=== PATIENT | male | born 1955 | race Caucasian/White ===

== ENCOUNTER → 2018-01-28 11:04 | Outpatient (CLI) | payer MEDICARE, SELFPAY ==
[2018-01-28 11:10] LABS: Microscopic, Urine URINE MICROSCOPIC (MICROSCOPIC)
[2018-01-28 11:44] LABS: Basophils # 0.1 K/mm3 (0-0.2); Basophils % 0.7 % (0.1-2.0); Eosinophils # 0.4 K/mm3 (0.0-0.4); Eosinophils % 4.7 % (0.1-12.0); Hematocrit 46.3 % (42.0-52.0); Hemoglobin 14.7 g/dL (14.1-18.0); Lymphocytes # 1.8 K/mm3 (0.7-4.5); Lymphocytes % 23.2 K/mm3 (10-50); Mean Corpuscular HGB Conc 31.8 g/dL (31.8-35.4); Mean Corpuscular Hemoglobin 29.5 pg (27.0-31.2); Mean Corpuscular Volume 92.8 fl (80-94); Mean Platelet Volume 8.4 fl (7.4-10.4); Monocytes # 0.4 K/mm3 (0.1-1.0); Monocytes % 5.2 % (1.7-9.3); Neutrophils % 66.2 % (37.0-80.0); Platelet Count 253 K/mm3 (142-424); Red Blood Count 4.98 M/mm3 (4.60-6.20); Red Cell Distribution Width 13.7 % (11.5-17.5); White Blood Count 7.6 K/mm3 (4.8-10.8)
[2018-01-28 12:08] LABS: Appearance,Urine CLEAR (Clear); Bilirubin,Urine Negative (Negative); Blood, Urine Negative (Negative); Color,Urine YELLOW (Yellow); Glucose,Urine (UA) 3+ (Negative); Ketones,Urine Negative (Negative); Leukocyte Esterase,Urine Negative (Negative); Nitrate,Urine Negative (Negative); Protein,Urine Negative (Negative); Specific Gravity, Urine 1.025 (1.005-1.030); Urobilinogen,Urine 0.2 EU/dl (0.2)
[2018-01-28 12:21] LABS: Bacteria,Urine 1+ /lpf; Squamous Epithelial Cell,Urine Occasional #/hpf (0-5)
[2018-01-28 12:32] LABS: Creatinine,Urine Random 138 mg/dL (20-320); Total Protein,Urine Random 29.6 mg/dL (0.0-11.9)
[2018-01-28 12:52] LABS: Albumin Level 3.9 gm/dL (3.4-5.0); Anion Gap 12.7 mEq/L (5-15); Blood Urea Nitrogen 29 mg/dL (7-18); Calcium 9.4 mg/dL (8.5-10.1); Carbon Dioxide 28 mmol/L (21.0-32.0); Chloride 107 mmol/L (98-107); Creatinine,Serum 1.83 mg/dL (0.70-1.30); Estimated Glomerular Filt Rate 37 ml/min (>60); GFR (African American) 45 ML/MIN (>60); Glucose 237 mg/dL (74-106); Phosphorous 3.5 mg/dL (2.4-4.9); Potassium 4.7 mmoL/L (3.5-5.1); Sodium 143 mmol/L (136-145)
[2018-02-01 13:26] LABS: Parathyroid Hormone Intact 48 pg/mL (15-65)
== END ==
PROVIDERS: Visit Provider Internal Medicine Nephrology
DX: N18.3 Chronic kidney disease, stage 3 (moderate) (principal)
CPT/HCPCS: 36415; 80069; 81001; 82570; 82652; 83970; 84155; 85025

== ENCOUNTER → 2018-02-04 11:01 | Outpatient (POV) | payer MEDICARE, SELFPAY | PROVIDERS: Visit Provider Internal Medicine Nephrology | DX: Z00.00 Encounter for general adult medical examination without abnormal findings (principal) ==

== ENCOUNTER → 2018-04-30 11:46 | Outpatient (CLI) | payer MEDICARE, SELFPAY ==
[2018-04-30 12:11] LABS: Basophils # 0.1 K/mm3 (0-0.2); Basophils % 0.8 % (0.1-2.0); Eosinophils # 0.4 K/mm3 (0.0-0.4); Eosinophils % 4.2 % (0.1-12.0); Hematocrit 46.1 % (42.0-52.0); Hemoglobin 15.1 g/dL (14.1-18.0); Lymphocytes # 2.2 K/mm3 (0.7-4.5); Lymphocytes % 22.4 K/mm3 (10-50); Mean Corpuscular HGB Conc 32.7 g/dL (31.8-35.4); Mean Corpuscular Hemoglobin 30.3 pg (27.0-31.2); Mean Corpuscular Volume 92.8 fl (80-94); Mean Platelet Volume 8.2 fl (7.4-10.4); Monocytes # 0.5 K/mm3 (0.1-1.0); Monocytes % 4.7 % (1.7-9.3); Neutrophils # 6.6 K/mm3 (1.8-7.8); Neutrophils % 67.9 % (37.0-80.0); Platelet Count 221 K/mm3 (142-424); Red Blood Count 4.97 M/mm3 (4.60-6.20); Red Cell Distribution Width 14.2 % (11.5-17.5); White Blood Count 9.8 K/mm3 (4.8-10.8)
[2018-04-30 13:22] LABS: Albumin Level 3.9 gm/dL (3.4-5.0); Anion Gap 16.3 mEq/L (5-15); Blood Urea Nitrogen 21 mg/dL (7-18); Calcium 9.2 mg/dL (8.5-10.1); Carbon Dioxide 25 mmol/L (21.0-32.0); Chloride 109 mmol/L (98-107); Creatinine,Serum 1.68 mg/dL (0.70-1.30); Estimated Glomerular Filt Rate 41 ml/min (>60); GFR (African American) 50 ML/MIN (>60); Glucose 150 mg/dL (74-106); Potassium 4.3 mmoL/L (3.5-5.1); Sodium 146 mmol/L (136-145); Uric Acid 5.4 mg/dL (2.6-7.2)
[2018-04-30 14:22] LABS: Creatinine,Urine Random 208 mg/dL (20-320)
[2018-05-01 12:42] LABS: Vitamin D 25 Hydroxy 31.3 ng/mL (30.0-100.0)
[2018-05-01 12:46] LABS: Microalbumin, Urine 17.7 ug/mL (Not Estab.)
== END ==
PROVIDERS: PCP Family Medicine; Visit Provider Internal Medicine Nephrology
DX: N18.3 Chronic kidney disease, stage 3 (moderate) (principal)
CPT/HCPCS: 36415; 80069; 82043; 82570; 82652; 83520; 84550; 85025

== ENCOUNTER → 2018-05-14 12:26 | Outpatient (CLI) | payer MEDICARE, SELFPAY ==
--- NOTE | 2018-05-14 12:37 | US_ITS ---
US kidney retroperitoneal comp HISTORY: ITS.REASON: CHRONIC KIDNEY DISEASE ORDERING PHYSICIAN: Bud Mcfarlane PATIENT AGE: 63 years Comparison: None FINDINGS: The right kidney is 10 x 5 x 6 cm and has an unremarkable appearance. No hydronephrosis or mass or perinephric fluid collection. Left kidney is 10 x 5 x 6 cm. There is moderate to severe left hydronephrosis with cortical thinning of the left kidney. Incidental note made of a isoechoic 2.6 x 1.5 cm lesion in the right lobe of the liver. IMPRESSION: 1. Moderate to severe left hydronephrosis with cortical thinning of the left kidney. 2. Indeterminate 2.6 cm lesion of the right hepatic lobe
== END ==
PROVIDERS: PCP Family Medicine; Visit Provider Internal Medicine Nephrology
DX: N18.3 Chronic kidney disease, stage 3 (moderate) (principal)
CPT/HCPCS: 76770

== ENCOUNTER → 2018-05-31 11:06 | Outpatient (CLI) | payer MEDICARE, SELFPAY ==
[2018-05-31 11:22] LABS: INR 0.97 (0.9-1.1)
[2018-05-31 11:37] LABS: Anion Gap 14.1 mEq/L (5-15); Blood Urea Nitrogen 19 mg/dL (7-18); CKMB Relative Index 1.3 U/L (0-4.0); Calcium 8.9 mg/dL (8.5-10.1); Carbon Dioxide 26 mmol/L (21.0-32.0); Chloride 103 mmol/L (98-107); Creatine Kinase 95 U/L (39-308); Creatine Kinase MB 1.2 ng/ml (0.0-3.6); Creatinine,Serum 1.98 mg/dL (0.70-1.30); Estimated Glomerular Filt Rate 34 ml/min (>60); GFR (African American) 41 ML/MIN (>60); Glucose 328 mg/dL (74-106); Potassium 4.1 mmoL/L (3.5-5.1); Sodium 139 mmol/L (136-145); Troponin I < 0.02 ng/ml (0.00-0.06)
[2018-05-31 11:41] LABS: Basophils # 0.1 K/mm3 (0-0.2); Basophils % 0.6 % (0.1-2.0); Eosinophils # 0.3 K/mm3 (0.0-0.4); Eosinophils % 2.8 % (0.1-12.0); Hematocrit 45.9 % (42.0-52.0); Hemoglobin 14.7 g/dL (14.1-18.0); Lymphocytes # 1.9 K/mm3 (0.7-4.5); Lymphocytes % 16.8 K/mm3 (10-50); Mean Corpuscular HGB Conc 32.1 g/dL (31.8-35.4); Mean Corpuscular Hemoglobin 30.2 pg (27.0-31.2); Mean Platelet Volume 8.4 fl (7.4-10.4); Monocytes # 0.5 K/mm3 (0.1-1.0); Monocytes % 4.4 % (1.7-9.3); Neutrophils # 8.4 K/mm3 (1.8-7.8); Neutrophils % 75.3 % (37.0-80.0); Platelet Count 243 K/mm3 (142-424); Red Blood Count 4.88 M/mm3 (4.60-6.20); Red Cell Distribution Width 13.9 % (11.5-17.5); White Blood Count 11.1 K/mm3 (4.8-10.8)
== END ==
PROVIDERS: PCP Physician Assistant; Visit Provider Physician Assistant
DX: I24.9 Acute ischemic heart disease, unspecified (principal); I34.0 Nonrheumatic mitral (valve) insufficiency
CPT/HCPCS: 80048; 82550; 82553; 84484; 85025; 85610

== ENCOUNTER → 2018-06-03 13:19 | Outpatient (POV) | payer MEDICARE, SELFPAY | PROVIDERS: PCP Physician Assistant; Visit Provider Internal Medicine Nephrology | DX: Z00.00 Encounter for general adult medical examination without abnormal findings (principal) ==

== ENCOUNTER 2018-06-09 12:02 | Observation (INO) ==
[2018-06-09 12:41] LABS: Basophils # 0.1 K/mm3 (0-0.2); Basophils % 0.6 % (0.1-2.0); Eosinophils # 0.3 K/mm3 (0.0-0.4); Hematocrit 41.2 % (42.0-52.0); Hemoglobin 14.8 g/dL (14.1-18.0); Lymphocytes # 1.2 K/mm3 (0.7-4.5); Mean Corpuscular HGB Conc 35.9 g/dL (31.8-35.4); Mean Corpuscular Hemoglobin 33.1 pg (27.0-31.2); Mean Corpuscular Volume 92.2 fl (80-94); Mean Platelet Volume 8.3 fl (7.4-10.4); Monocytes # 0.4 K/mm3 (0.1-1.0); Monocytes % 4.6 % (1.7-9.3); Neutrophils # 7.4 K/mm3 (1.8-7.8); Neutrophils % 78.8 % (37.0-80.0); Platelet Count 271 K/mm3 (142-424); Red Blood Count 4.47 M/mm3 (4.60-6.20); Red Cell Distribution Width 13.8 % (11.5-17.5); White Blood Count 9.4 K/mm3 (4.8-10.8)
[2018-06-09 12:55] LABS: Albumin Level 3.5 gm/dL (3.4-5.0); Albumin/Globulin Ratio 0.9 (1.1-1.8); Anion Gap 12.4 mEq/L (5-15); Bilirubin,Total 0.9 mg/dL (0.2-1.0); Calcium 9.1 mg/dL (8.5-10.1); Potassium 4.4 mmoL/L (3.5-5.1); Total Protein,Serum 7.5 gm/dL (6.4-8.2)
--- NOTE | 2018-06-09 17:28 | Emergency Department Note ---
ED Disposition Clinical Impression: Headache, Gastroenteritis Disposition: Admitted as Observation Condition on Discharge: Fair - Critical Care Critical Care Time: No Attestation: On 06/09/18, the high probability of a clinically significant, sudden or life threatening deterioration of the following system(s) required my full and direct attention, intervention and personal management. The time I documented below is in addition to time spent performing reported procedures but includes the following listed in this critical care notation. Medical Decision Making - Medical Records MR Comment: Discussed case and EKG fiding with his singe machine operator (Dr. Fleming). Asked to see patient at his clinic at 8:30 AM. Patient continued to complain of headache. Discussed case with Dr. Osei. SBAR given. Patient admitted to his care for farther management and monitoring. Patient remained stable during his ED care. - Isai Inquiry Pt receiving controlled substance: Yes Isai was queried for this patient: No Risks and benefits of using a controlled substance: were discussed with pt by me Vital Signs: 06/09/18 12:12 06/09/18 12:45 06/09/18 13:19 Temperature 97.5 F L Temperature Source Oral Pulse Rate [Left Radial] 60 61 63 Respiratory Rate 20 17 Blood Pressure [Right Arm] 187/77 H 151/74 H Blood Pressure Mean [Right Arm] 113 99 Blood Pressure Source [Right Arm] Automatic Cuff Automatic Cuff Blood Pressure Position [Right Arm] Sitting Sitting 02 Sat by Pulse Oximetry 99 97 97 Oxygen Delivery Method Room Air Room Air 06/09/18 13:45 06/09/18 14:05 06/09/18 14:50 Temperature Temperature Source Pulse Rate [Left Radial] 59 L 59 L 61 Respiratory Rate Blood Pressure [Right Arm] 144/81 H 154/86 H 151/88 H Blood Pressure Mean [Right Arm] 102 108 109 Blood Pressure Source [Right Arm] Manual Cuff/ Palpation Automatic Cuff Automatic Cuff Blood Pressure Position [Right Arm] Sitting 02 Sat by Pulse Oximetry 96 96 96 Oxygen Delivery Method Room Air 06/09/18 15:38 06/09/18 16:24 Temperature Temperature Source Pulse Rate [Left Radial] 61 64 Respiratory Rate Blood Pressure [Right Arm] 156/89 H 149/88 H Blood Pressure Mean [Right Arm] 111 108 Blood Pressure Source [Right Arm] Automatic Cuff Automatic Cuff Blood Pressure Position [Right Arm] Sitting Sitting 02 Sat by Pulse Oximetry 96 97 Oxygen Delivery Method - Lab Data Lab Results 06/09/18 12:19: POC Glucose 219 H 06/09/18 12:30: WBC 9.4, RBC 4.47 L, Hgb 14.8, Hct 41.2 L, MCV 92.2, MCH 33.1 H, MCHC 35.9 H, RDW 13.8, Plt Count 271, MPV 8.3, Neut % (Auto) 78.8, Lymph % (Auto) 13.0, [place] % (Auto) 4.6, Eos % (Auto) 3.0, Baso % (Auto) 0.6, Neut # (Auto) 7.4, Lymph # (Auto) 1.2, [place] # (Auto) 0.4, Eos # (Auto) 0.3, Baso # (A uto) 0.1 06/09/18 12:30: Sodium 138, Potassium 4.4, Chloride 104, Carbon Dioxide 26, Anion Gap 12.4, BUN 17, Creatinine 1.81 H, Estimated Creat Clear 56, Estimated GFR 38 L, Est GFR ( Amer) 46 L, Glucose 233 H, Calcium 9.1, Total Bilirubin 0.9, AST 26, ALT 44, Alkaline Phosphatase 138 H, Troponin I 0.09 H, Total Protein 7.5, Albumin 3.5, Globulin 4.0 H, Albumin/Globulin Ratio 0.9 L, Lipase 176 06/09/18 12:30: B-Natriuretic Peptide 410 H Result diagrams: 06/09/18 12:30 06/09/18 12:30 Orders (Tests/Meds): ED MEDICATIONS Generic Name Dose Route Start Last Admin Trade Name Freq PRN Reason Stop Dose Admin Acetaminophen 1,000 mg 06/09/18 17:24 Tylenol 500mg Tablet PO 06/09/18 17:25 ONCE ONE Discontinued Medications Generic Name Dose Route Start Last Admin Trade Name Freq PRN Reason Stop Dose Admin Sodium Chloride 1,000 mls @ 999 mls/hr 06/09/18 12:45 06/09/18 13:20 Sod Chlor 0.9% 1000ml Bag IV 06/09/18 13:45 999 mls/hr .Q1H1M JAKOB Administration Metoprolol Tartrate 5 mg 06/09/18 12:37 06/09/18 13:35 Metoprolol Tartrate 5mg/5ml Vial IV 06/09/18 12:38 2.5 mg ONCE ONE Administration Ondansetron HCl 4 mg 06/09/18 12:29 06/09/18 13:35 Zofran 4mg/2ml Vial IV 06/09/18 12:30 4 mg ONCE ONE Administration ORDERS Category Date Time Status CT abdomen wo con Stat Cat Scan 06/09/18 14:07 Taken Urinalysis (cathed specimen) Stat Lab 06/09/18 12:26 Ordered - Radiology Data #1 Image(s): Chest Image Reviewed: Yes I have reviewed radiologist's interpretation Preliminary Findings: Normal/NAD - CT Data CT Scan: Head Time Received: 17:[address] Reviewed: Yes: I have reviewed the patient's CT results Preliminary Findings: Normal/NAD - ECG Data Tracing #1 Normal Sinus Rhythm: Yes Arrhythmias present: sinus steven, other (Ischemic changes involving anterolateral leads.) Nausea/Vomiting/Diarrhea HPI - General Chief complaint: Headache Stated complaint: Sweating, nausea, vomitting Time Seen by Provider: 06/09/18 12:14 Mode of Arrival: Ambulatory Source of Information: Patient Limitations: No Limitations Description of Symptoms (Recalled from ER Triage Doc. by RN): PT states that he started with a headache, nausea and vomiting after his heart cath last week. The pt n/v has increased in the last 3 days and states this is the worst headache he has ever had, he believes that the headache brings on the nause and vomiting - History of Present Illness HPI Narrative: Presents to the ED with complains of nausea, vomiting and diarrhea since last night. Reports multiple episode of emesis and 2 episode of watery non-bloody diarrhea. Unsure of any sick contact or contaminated diet. Reports moderate headache. BP elevated at presentation. States his Coreg was cut back by his singe machine operator several days ago. Patient denies any chest pain, sob, wheezing, abdominal pain. Reports chronic back pain. MD complaint: nausea, vomiting, diarrhea Onset (ago): day(s) (1) Description of Vomiting: food contents Description of Diarrhea: water Associated Abdominal Pain: No Severity: mild Quality: aching Relieving factors: none Exacerbating factors: none Context: possible food poisoning Associated symptoms: denies other symptoms - Related Data Home Medications Medication Instructions Recorded Confirmed atorvastatin 40 mg tablet 20 mg PO ONCE 09/24/17 06/09/18 gabapentin 400 mg capsule 400 mg PO TID 09/24/17 06/09/18 metformin 1,000 mg tablet 1,000 mg PO BID 09/24/17 06/09/18 venlafaxine ER 37.5 mg 37.5 mg PO QHS cap 09/24/17 06/09/18 capsule,extended release 24 hr Canagliflozin [Invokana] 300 mg PO DAILY 05/31/18 06/09/18 aspirin 81 mg tablet,delayed 81 mg PO DAILY 05/31/18 06/09/18 release buspirone 10 mg tablet 10 mg PO BID 05/31/18 06/09/18 tramadol 50 mg tablet 50 mg PO Q6H PRN 05/31/18 06/09/18 losartan 100 mg tablet 100 mg PO DAILY tab 06/04/18 06/09/18 ticagrelor 90 mg tablet 90 mg PO BID 06/04/18 06/09/18 Carvedilol [Carvedilol 6.25mg Tab] 6.25 mg PO BID 06/09/18 06/09/18 Allergies Allergy/AdvReac Type Severity Reaction Status Date / Time No Known Allergies Allergy Verified 06/04/18 09:02 [facility] History I have reviewed the patient's past medical history: Yes Medical History: Reports:: Anxiety, Depression, Diabetes Mellitus Type 2, Hyperlipidemia, Hypertension, Kidney Stones Denies:: Internal Pacemaker, Seizures Other Medical History: Reports: Arthritis Other Surgeries: Yes: Appendectomy, Cardiac Catheterization, Coronary Stent. No: Pacemaker Amputation: No Fractures: No - Social History Smoking Status: Former smoker Tobacco Type: cigarettes Alcohol Intake: never Occupational Status: retired Household Members: family - Psychiatric History Expresses thoughts of harming self/others: None Suicide Plan Description: No Plan Pschychiatric History:: Reports:: Anxiety, Depression Family Hx:: Coronary Artery Disease ROS Obtained: Yes All systems reviewed & no additional complaints Physical Exam - General General appearance: alert, in no apparent distress - Head Head exam: atraumatic, normocephalic, normal inspection - Eye Eye exam: Present: normal appearance, PERRL, EOMI - ENT ENT exam: Present: normal exam, normal oropharynx, mucous membranes moist, TM's normal bilaterally, normal external ear exam - Neck Neck exam: Present: normal inspection, full ROM, trachea midline. Absent: meningismus, lymphadenopathy - Chest Chest inspection: Present: normal inspection, symmetric chest wall rise. Absent: tenderness - Respiratory Respiratory exam: Present: normal lung sounds bilaterally. Absent: respiratory distress - Cardiovascular Cardiovascular exam: Present: regular rate, normal rhythm. Absent: JVD - Abdominal Exam Abdominal exam: Present: soft, normal bowel sounds. Absent: distention, tenderness, guarding - Extremities Exam Extremities exam: Present: normal inspection, full ROM, normal capillary refill. Absent: calf tenderness - Back Exam Back exam: Present: normal inspection. Absent: tenderness - Neurological Exam Neurological exam: Present: alert, oriented X3 - Psychiatric Psychiatric exam: Present: normal affect, normal mood - Skin Skin exam: Present: warm, dry, intact, normal color - Lymphatic Lymphatic Findings: no adenopathy
[2018-06-10 06:37] LABS: Albumin Level 3.4 gm/dL (3.4-5.0); Albumin/Globulin Ratio 0.9 (1.1-1.8); Anion Gap 9.8 mEq/L (5-15); Bilirubin,Total 0.6 mg/dL (0.2-1.0); Globulin 3.7 gm/dl (1.3-3.2); Potassium 4.8 mmoL/L (3.5-5.1); Total Protein,Serum 7.1 gm/dL (6.4-8.2)
--- NOTE | 2018-06-10 07:22 | Pharmacy Consult Notes ---
[facility] Pharmacy VTE Monitoring - Patient Demographics Admission date: 06/09/18 Report Date: 06/10/18 Time: 07:21 Allergies/Adverse Reactions: Patient Allergies No Known Allergies Allergy (Verified 06/04/18 09:02) Height: 1.83 m Weight: 94.858 kg Patient Problems: Current Active Problems Headache (Acute) Gastroenteritis (Acute) - VTE Risk Labs: VTE Related Lab Results Hgb 14.8 g/dL (14.1-18.0) 06/09/18 12:30 Hct 41.2 % (42.0-52.0) L 06/09/18 12:30 Plt Count 271 K/mm3 (142-424) 06/09/18 12:30 BUN 18 mg/dL (7-18) 06/10/18 06:05 Creatinine 1.75 mg/dL (0.70-1.30) H 06/10/18 06:05 Estimated Creat Clear 56 mL/min (0-300) 06/10/18 06:05 VTE Score: 4 VTE Risk Level: Low Risk - Prophylaxis VTE Prophylaxis Ordered?: Yes Types of VTE Prophylaxis: Pharmacological Pharmacologic Type: Other (BRILINTA) - VTE Diagnosis Confirmed Treatment or plan recommended: Continue Current Treatment
--- NOTE | 2018-06-10 07:41 | History & Physical Report ---
*Admission Date: 06/09/18 *Chief complaint: Headache, vomiting, diarrhea *History of present illness: 63-year-old male with recent stenting x2 by Dr. Fleming for angina presented to the emergency department with a complaint of 3 days of headache, vomiting, diarrhea. The headache is described as migrainous in nature. Vomiting usually follows the headache. Diarrhea has been intermittent. He has had subjective fevers. He denies sick contacts. He has not had chest pain or shortness of breath. In the emergency department he underwent workup which confirmed the presence of a left-sided mid ureteral stone measuring 1 cm in diameter that was obstructive and causing moderate to severe hydronephrosis. Patient admits to left flank pain now for the last month. Hydronephrosis was identified on ultrasound 1 month ago. Patient was admitted for IV fluids, blood pressure control, pain control. Diarrhea has ceased since admission. Patient last vomited yesterday evening. He headache overnight. Patient's blood pressure has been elevated yet he reports within the last week his antihypertensives were reduced due to hypotension. Patient was on maximum dose carvedilol and this is been reduced to 6.25 mg [facility] History Medical History: Reports:: Anxiety, Atherosclerotic Heart Disease, Depression, Diabetes Mellitus Type 2, Hyperlipidemia, Hypertension, Kidney Stones Denies:: Cancer, Diabetes Mellitus Type 1, Internal Pacemaker, MRSA, Seizures Other Medical History: Reports: Arthritis Comment: Kidney stones Other Surgeries: Yes: Appendectomy, Cardiac Catheterization, Coronary Stent. No: Pacemaker Amputation: No Fractures: No - *Social History Educational Level: Completed Grade School Smoking Status: Former smoker Tobacco Type: cigarettes Alcohol Intake: never Occupational Status: retired Housing: house Household Members: family - Psychiatric History Expresses thoughts of harming self/others: None Suicide Plan Description: No Plan Pschychiatric History:: Reports:: Anxiety, Depression *Family Hx:: Coronary Artery Disease, Diabetes, Hypertension, Stroke Review of Systems - Constitutional Denies body ache(s), Denies chills - *Cardiovascular Denies chest pain - *Respiratory Denies chest congestion, Denies cough - *Gastrointestinal Reports abdominal pain, Reports change in bowel habits, Reports cramping, Reports loose stools, Reports vomiting blood - *Genitourinary Denies difficulty urinating - *Musculoskeletal Denies abnormal walking - *Neurologic Denies abnormal walking Meds Home Medications Medication Instructions Recorded Confirmed Type atorvastatin 40 mg tablet 20 mg PO ONCE 09/24/17 06/09/18 History gabapentin 400 mg capsule 400 mg PO TID 09/24/17 06/09/18 History metformin 1,000 mg tablet 1,000 mg PO BID 09/24/17 06/09/18 History venlafaxine ER 37.5 mg 37.5 mg PO QHS cap 09/24/17 06/09/18 History capsule,extended release 24 hr Canagliflozin [Invokana] 300 mg PO DAILY 05/31/18 06/09/18 History aspirin 81 mg tablet,delayed 81 mg PO DAILY 05/31/18 06/09/18 History release buspirone 10 mg tablet 10 mg PO BID 05/31/18 06/09/18 History tramadol 50 mg tablet 50 mg PO Q6H PRN 05/31/18 06/09/18 History losartan 100 mg tablet 100 mg PO DAILY tab 06/04/18 06/09/18 History ticagrelor 90 mg tablet 90 mg PO BID 06/04/18 06/09/18 History Carvedilol [Carvedilol 6.25mg Tab] 6.25 mg PO BID 06/09/18 06/09/18 History Tamsulosin HCl [Flomax 0.4mg 0.4 mg PO HS 06/09/18 06/09/18 History capsule] glipiZIDE [Glucotrol] 5 mg PO BID 06/09/18 06/09/18 History Allergies Allergy/AdvReac Type Severity Reaction Status Date / Time No Known Allergies Allergy Verified 06/04/18 09:02 Exam Vital signs and Labs for Last 24 Hours: Temp Pulse Resp BP Pulse Ox 98.7 F 69 18 162/77 H 92 L 06/10/18 07:18 06/10/18 07:18 06/10/18 07:18 06/10/18 07:18 06/10/18 07:18 Laboratory Results - last 24 hr 06/09/18 12:19: POC Glucose 219 H 06/09/18 12:30: WBC 9.4, RBC 4.47 L, Hgb 14.8, Hct 41.2 L, MCV 92.2, MCH 33.1 H, MCHC 35.9 H, RDW 13.8, Plt Count 271, MPV 8.3, Neut % (Auto) 78.8, Lymph % (Auto) 13.0, [place] % (Auto) 4.6, Eos % (Auto) 3.0, Baso % (Auto) 0.6, Neut # (Auto) 7.4, Lymph # (Auto) 1.2, [place] # (Auto) 0.4, Eos # (Auto) 0.3, Baso # (Auto) 0.1 06/09/18 12:30: Sodium 138, Potassium 4.4, Chloride 104, Carbon Dioxide 26, Anion Gap 12.4, BUN 17, Creatinine 1.81 H, Estimated Creat Clear 56, Estimated GFR 38 L, Est GFR ( Amer) 46 L, Glucose 233 H, Calcium 9.1, Total Bilirubin 0.9, AST 26, ALT 44, Alkaline Phosphatase 138 H, Troponin I 0.09 H, Total Protein 7.5, Albumin 3.5, Globulin 4.0 H, Albumin/Globulin Ratio 0.9 L, Lipase 176 06/09/18 12:30: B-Natriuretic Peptide 410 H 06/10/18 03:04: POC Glucose 168 H 06/10/18 06:05: Sodium 140, Potassium 4.8, Chloride 106, Carbon Dioxide 29, Anion Gap 9.8, BUN 18, Creatinine 1.75 H, Estimated Creat Clear 56, Estimated GFR 39 L, Est GFR ( Amer) 48 L, Glucose 201 H, Calcium 9.0, Total Bilirubin 0.6, AST 20, ALT 39, Alkaline Phosphatase 126 H, Troponin I 0.10 H, Total Protein 7.1, Albumin 3.4, Globulin 3.7 H, Albumin/Globulin Ratio 0.9 L 06/10/18 06:21: POC Glucose 203 H I & O for Last 24 hours: Intake & Output 06/07/18 06/08/18 06/09/18 06/10/18 11:59 11:59 11:59 11:59 Intake Total 240 / 240 Output Total 1200 / 1200 Balance -960 / -960 Weight 209 lb 2 oz Narrative: Patient looks like he does not feel well. He is alert and oriented. ENT exam is grossly normal. Lungs are clear to auscultation. Heart has a regular rate and rhythm. Abdomen is soft and nontender. Bowel sounds are present. Patient has active range of motion in all extremities. Neurologically there is no focal deficit. Assessment and Plan (1) Gastroenteritis Current visit: Yes Status: Acute Category: Medical Code(s): K52.9 - Noninfective gastroenteritis and colitis, unspecified (2) Essential hypertension Current visit: Yes Status: Acute Category: Medical Code(s): I10 - Essential (primary) hypertension (3) Diabetes mellitus type 2 in nonobese Current visit: Yes Status: Acute Category: Medical Code(s): E11.9 - Type 2 diabetes mellitus without complications (4) Ureterolithiasis Current visit: Yes Status: Acute Category: Medical Code(s): N20.1 - Calculus of ureter (5) Headache Current visit: Yes Status: Acute Category: Medical Code(s): R51 - Headache (6) Hydronephrosis concurrent with and due to calculi of kidney and ureter Current visit: Yes Status: Acute Category: Medical Code(s): N13.2 - Hydronephrosis with renal and ureteral calculous obstruction - Assessment and plan all Dx Assessment and Plan for all problems:: 1. Increase patient's carvedilol to 12.5 mg twice daily. 2. Hold Brilinta and give Lovenox. This is for potential intervention for his obstructive ureteral stone 3. Urology consult for tomorrow 4. Serial blood pressure measurements. I am not sure if rise in blood pressure is the cause of his headaches or vice versa. He may be experiencing some rebound hypertension after reduction of his beta-emma. Amlodipine would be an alternative if he becomes bradycardic. 5. Hold metformin and Invokana secondary to chronic kidney disease. 6. Left renal duplex to assess renal artery stenosis believed to be identified on catheterization.
--- NOTE | 2018-06-11 06:46 | Progress Note ---
Internal Medicine - PN: Subj *Date: 06/11/18 *Time: 06:43 Interval history: Patient has had decreased frequency of headache. Blood pressure has been much better since yesterday afternoon. He continues to have mild left flank discomfort. No fevers or chills overnight. Exam Vital signs and Labs for Last 24 Hours: Temp Pulse Resp BP Pulse Ox 98.1 F 61 16 133/72 93 L 06/11/18 04:15 06/11/18 04:15 06/11/18 04:15 06/11/18 04:15 06/11/18 04:15 Laboratory Results - last 24 hr 06/10/18 06:05: Sodium 140, Potassium 4.8, Chloride 106, Carbon Dioxide 29, Anion Gap 9.8, BUN 18, Creatinine 1.75 H, Estimated Creat Clear 56, Estimated GFR 39 L, Est GFR ( Amer) 48 L, Glucose 201 H, Calcium 9.0, Total Bilirubin 0.6, AST 20, ALT 39, Alkaline Phosphatase 126 H, Troponin I 0.10 H, Total Protein 7.1, Albumin 3.4, Globulin 3.7 H, Albumin/Globulin Ratio 0.9 L 06/10/18 10:46: POC Glucose 188 H 06/10/18 16:58: POC Glucose 218 H 06/10/18 20:46: POC Glucose 201 H 06/11/18 04:15: Urine Color Yellow, Urine Appearance Cloudy, Urine pH 5.5, Ur Specific [place] 1.025, Urine Protein Negative, Urine Glucose (UA) Negative, Urine Ketones Negative, Urine Blood 3+, Urine Nitrate Negative, Urine Bilirubin Negative, Urine Urobilinogen 0.2, Ur Leukocyte Esterase 1+ A, Urine RBC Tntc, Urine WBC 5-10, Urine Bacteria 1+ 06/11/18 06:15: POC Glucose 134 H I & O for Last 24 hours: Intake & Output 06/08/18 06/09/18 06/10/18 06/11/18 11:59 11:59 11:59 11:59 Intake Total 240 / 240 850 / 850 Output Total 1200 / 1200 1200 / 1200 Balance -960 / -960 -350 / -350 Weight 209 lb 2 oz 209 lb 5 oz Narrative: Overall patient looks better. Lungs are clear. Heart has a regular rate and rhythm. Abdomen is soft and nontender. Bowel sounds are present. Assessment and Plan (1) Gastroenteritis Current visit: Yes Status: Acute Category: Medical Code(s): K52.9 - Noninfective gastroenteritis and colitis, unspecified (2) Ureterolithiasis Current visit: Yes Status: Acute Category: Medical Code(s): N20.1 - Calcu danica of ureter (3) Essential hypertension Current visit: Yes Status: Acute Category: Medical Code(s): I10 - Essential (primary) hypertension (4) Diabetes mellitus type 2 in nonobese Current visit: Yes Status: Acute Category: Medical Code(s): E11.9 - Type 2 diabetes mellitus without complications (5) Headache Current visit: Yes Status: Acute Category: Medical Code(s): R51 - Headache (6) Hydronephrosis concurrent with and due to calculi of kidney and ureter Current visit: Yes Status: Acute Category: Medical Code(s): N13.2 - Hydronephrosis with renal and ureteral calculous obstruction - Assessment and plan all Dx Assessment and Plan for all problems:: 1. Urology evaluation for obstructive ureterolithiasis. Patient is n.p.o. 2. Continue to hold hypoglycemic agents. Changes will be made at discharge to his diabetic regimen due to associated renal impairment on 3. Gastroenteritis has resolved
[2018-06-11 09:07] LABS: Anion Gap 12.3 mEq/L (5-15); Calcium 8.5 mg/dL (8.5-10.1); Potassium 4.3 mmoL/L (3.5-5.1)
--- NOTE | 2018-06-11 14:29 | Discharge Summary ---
General - General Admission date:: 06/09/18 Discharge date: 06/12/18 HPI HPI: 63-year-old male with recent stenting x2 by Dr. Fleming for angina presented to the emergency department with a complaint of 3 days of headache, vomiting, diarrhea. The headache is described as migrainous in nature. Vomiting usually follows the headache. Diarrhea has been intermittent. He has had subjective fevers. He denies sick contacts. He has not had chest pain or shortness of breath. In the emergency department he underwent workup which confirmed the presence of a left-sided mid ureteral stone measuring 1 cm in diameter that was obstructive and causing moderate to severe hydronephrosis. Patient admits to left flank pain now for the last month. Hydronephrosis was identified on ultrasound 1 month ago. Patient was admitted for IV fluids, blood pressure control, pain control. Diarrhea has ceased since admission. Patient last vomited yesterday evening. He headache overnight. Patient's blood pressure has been elevated yet he reports within the last week his antihypertensives were reduced due to hypotension. Patient was on maximum dose carvedilol and this is been reduced to 6.25 mg Hospital Course Hospital Course: Patient was admitted for observation. Diarrhea ceased upon admission. Patient had one single episode of vomiting after admission. Headache persisted as did elevated blood pressures. Adjustments more weight to antihypertensives, carvedilol was increased to 12-1/2 mg twice daily and amlodipine 5 mg was added. Blood pressures normalized after medication adjustments. Headache improved after medication adjustments. Patient remained normotensive for the rest of hospitalization. Patient had hydronephrosis from an obstructive left ureteral stone. Urology was consulted. On June 11 Dr. Kumar took the patient to the OR remove the stone. Postoperatively Matos catheter was left in place as was a ureteral stent. On June 12 patient was discharged home with instructions to follow-up with Dr. Kumar in urology clinic in 1 week. Patient will follow-up in my office as well in 1 week. Patient has diabetes and required adjustments to medications based on abnormal renal function. Invokana and metformin were discontinued. Patient will continue his sulfonylurea and Januvia 50 mg was added. Renal function will be repeated in 1 week at the office. Objective Vital signs: Temp Pulse Resp BP Pulse Ox 98.6 F 79 18 136/89 99 06/11/18 08:00 06/11/18 08:00 06/11/18 08:00 06/11/18 08:00 06/11/18 08:00 Results Labs on day of discharge: Labs from last 24 hours 06/11/18 06/11/18 06/11/18 06:52 06:15 04:15 Sodium 141 Potassium 4.3 Chloride 105 Carbon Dioxide 28 Anion Gap 12.3 BUN 25 H D Creatinine 1.80 H Estimated Creat Clear 55 Estimated GFR 38 L Est GFR ( Amer) 46 L Glucose 132 H POC Glucose 134 H Calcium 8.5 Urine Color Yellow Urine Appearance Cloudy Urine pH 5.5 Ur Specific [place] 1.025 Urine Protein Negative Urine Glucose (UA) Negative Urine Ketones Negative Urine Blood 3+ Urine Nitrate Negative Urine Bilirubin Negative Urine Urobilinogen 0.2 Ur Leukocyte Esterase 1+ A Urine RBC Tntc Urine WBC 5-10 Urine Bacteria 1+ 06/10/18 06/10/18 20:46 16:58 Sodium Potassium Chloride Carbon Dioxide Anion Gap BUN Creatinine Estimated Creat Clear Estimated GFR Est GFR ( Amer) Glucose POC Glucose 201 H 218 H Calcium Urine Color Urine Appearance Urine pH Ur Specific [place] Urine Protein Urine Glucose (UA) Urine Ketones Urine Blood Urine Nitrate Urine Bilirubin Urine Urobilinogen Ur Leukocyte Esterase Urine RBC Urine WBC Urine Bacteria DS: Diagnosis - Discharge Diagnosis (1) Gastroenteritis Status: Acute (2) Ureterolithiasis Status: Acute (3) Essential hypertension Status: Acute (4) Diabetes mellitus type 2 in nonobese Status: Acute (5) Headache Status: Acute (6) Hydronephrosis concurrent with and due to calculi of kidney and ureter Status: Acute Discharge Plan - Patient Discharge Instructions ACTIVITY: Continue current activity DIET: continue same diet Patient Instructions: DI for Viral Gastroenteritis -- Adult - Follow up Plan Follow up with: Derek Kumar MD [Staff Physician] - 06/18/18 Brendon Marti MD [Staff Physician] - 06/20/18 10:30 am Disposition: Home, Self-Long-Term Medications: Home Medications Medication Instructions Recorded Confirmed Type atorvastatin 40 mg tablet 40 mg PO DAILY 09/24/17 06/10/18 History gabapentin 400 mg capsule 400 mg PO TID 09/24/17 06/09/18 History metformin 1,000 mg tablet 1,000 mg PO BID 09/24/17 06/09/18 History Canagliflozin [Invokana] 300 mg PO DAILY 05/31/18 06/09/18 History aspirin 81 mg tablet,delayed 81 mg PO DAILY 05/31/18 06/09/18 History release buspirone 10 mg tablet 10 mg PO BID 05/31/18 06/09/18 History losartan 100 mg tablet 100 mg PO DAILY tab 06/04/18 06/09/18 History ticagrelor 90 mg tablet 90 mg PO BID 06/04/18 06/09/18 History Carvedilol [Carvedilol 6.25mg Tab] 6.25 mg PO BID 06/09/18 06/09/18 History Tamsulosin HCl [Flomax 0.4mg 0.4 mg PO HS 06/09/18 06/09/18 History capsule] glipiZIDE [Glucotrol] 5 mg PO BID 06/09/18 06/09/18 History Tramadol HCl [Ultram 50mg 50 mg PO Q6HP PRN 06/10/18 06/10/18 History tablet] Venlafaxine HCl [Venlafaxine HCl 75 mg PO DAILY 06/10/18 06/10/18 History ER] Prescriptions/Medication Reconciliation: New Carvedilol [Coreg 12.5mg Tablet] 12.5 mg PO BID #60 tablet Sitagliptin Phosphate [Januvia 50mg Tablet] 50 mg PO DAILY #30 tablet Continue atorvastatin 40 mg tablet 40 mg PO DAILY gabapentin 400 mg capsule 400 mg PO TID buspirone 10 mg tablet 10 mg PO BID ticagrelor 90 mg tablet 90 mg PO BID losartan 100 mg tablet 100 mg PO DAILY tab aspirin 81 mg tablet,delayed release 81 mg PO DAILY Tamsulosin HCl [Flomax 0.4mg capsule] 0.4 mg PO HS glipiZIDE [Glucotrol] 5 mg PO BID Tramadol HCl [Ultram 50mg tablet] 50 mg PO Q6HP PRN PRN Reason: PAIN Venlafaxine HCl [Venlafaxine HCl ER] 75 mg PO DAILY Carvedilol [Carvedilol 6.25mg Tab] 6.25 mg PO BID Discontinued metformin 1,000 mg tablet 1,000 mg PO BID Canagliflozin [Invokana] 300 mg PO DAILY
--- NOTE | 2018-06-11 18:37 | Progress Note ---
[facility] Anesthesia Checklist - Patient Identification Patient Identification: Arm Band - Structural Data Admitted From: Inpatient Planned Operative Procedure/s: Ureteroscopy with stone extraction Consent for Planned Operative Procedure(s) Verified: Yes Verified Documents: Surgical Consent, History and Physical - NPO Status Verified Time NPO: 00:00 - Additional verifications Anesthesia Reactions: No - Airway Assessment C-Spine Mobility Assessed: Yes (mp2) TMJ Mobility Assessed: Yes Dentition: Poor Dentition - Neurological Assessment Level of Consciousness: Awake, Alert - Anesthesia Plan Anesthesia Risk discussed: Yes Anesthesia Plan: Verified ASA Class: III Anesthesia Type: General [facility] History I have reviewed the patient's past medical history: Yes Medical History: Reports:: Anxiety, Atherosclerotic Heart Disease, Coronary Artery Disease, Depression, Diabetes Mellitus Type 2, Hyperlipidemia, Hypertension, Kidney Stones Denies:: Cancer, Diabetes Mellitus Type 1, Internal Pacemaker, MRSA, Seizures Other Medical History: Reports: Arthritis Other Surgeries: Yes: Appendectomy, Cardiac Catheterization, Coronary Stent. No: Pacemaker Amputation: No Fractures: No - *Social History Educational Level: Completed Grade School Smoking Status: Former smoker Tobacco Type: cigarettes Alcohol Intake: never Occupational Status: retired Housing: house Household Members: family - Psychiatric History Expresses thoughts of harming self/others: None Suicide Plan Description: No Plan Pschychiatric History:: Reports:: Anxiety, Depression *Family Hx:: Coronary Artery Disease, Diabetes, Hypertension, Stroke
--- NOTE | 2018-06-11 18:38 | Progress Note ---
[facility] Anesthesia Record Part I Intake, IV Amount: 1,500 Estimated blood loss (mL): 0 Urine output (mL): 0 Blood Pressure: 150/80 SaO2: 95 Pulse Rate: 63 Respiratory Rate: 16 Temperature: 97.9 F Patient is:: Drowsy, Stable Stable to PACU at:: 18:30
--- NOTE | 2018-06-11 18:38 | Progress Note ---
[facility] Anesthesia Record Part II Discharge Time: 19:00 Destination: 2nd floor PACU nurse assessment reviewed?: Yes Patient Condition:: Good Anesthesia Complications:: None
--- NOTE | 2018-06-11 19:08 | Operative Note ---
Date of procedure: 06/11/18 Pre-op Diagnosis:: Left uretral stone with obstruction with hydronephrosis Post-op Diagnosis:: same Procedure performed:: Left ureteroscopy with laser of large ureteral stone and stent placement Surgeon:: Derek Kumar MD INTEGRATION TECHNICIAN:: Sj Parra Anesthesia: GETA Estimated blood loss (mL): 0 Clinical Note:: Pt Admitted with abdominal pain and found to have 19mm x 14mm stone mid left ureter with hydronephrosis grossly. HE had cardiac stents two weeks ago and is on anticoagulation. After discussing options we have decided to proceeding with intervention. risks discussed including ureteral perforation. Operative findings:: For satisfactory general anesthesia he was carefully placed in the lithotomy position. The genital area was prepped and draped in standard fashion. He had had a Matos catheter in place during his hospitalization due to difficulty voiding. Catheter was removed. Genitals were prepped. The 22 [place] cystoscopy sheath was introduced with the 30 degree lens. Urethra was unremarkable but prostate was obstructing with bilobar bar hypertrophy as well as a very high median lobe. The bladder was inspected and was unremarkable. Fluoroscopically the large stone was visualized at the mid ureter. I initially placed a 0.0350 wire up to the stone but could not manipulate around the stone. Then placed a 5 [place] open ended ureteral catheter up to the stone and attempted a 0.035 and then a 0.025 zip wire through which went around the stone. I then placed the sensor wire up to the level of the stone and remove the cystoscope. I was then able to advance the semirigid ureteroscope up the ureter to the level of the stone. Through the ureteroscope I passed the 0.035 zip wire the stone and to the level of the kidney. Move the ureteroscope off of the wire and then reintroduced it alongside the wire. I was able then to access the stone and used a initially 200 m fiber at 6 W to fragment a large portion of the stone. Actually used to 200 m fibers on this large stone I then used a 365 m fiber to further fragment the stone down to the very small pieces all appeared to be 2-3 mm in size. The entire tone appeared to be treated. Fluoroscopically there was only a cloud left at the completion of the procedure. Total operative time was about 2-1/2 hours. I dense slowly remove the ureteroscope. There was no ureteral perforation although at the initial impact of the stone there was significant edema. Scope was withdrawn. The wire was then backloaded through the cystoscope and the stent placed. Due to the level of stone burden I elected to leave the string attached to the stent but also placed an 18 [place] coud tip Matos catheter. The string was secured to catheter with Tegaderm. She was then converted back to the supine position awakened extubated and then transferred to the postop recovery room in stable condition. We will leave his Matos catheter and stent in place for 1 week. End of dictation Operative note:: As above Tourniquet time (min): 0 Condition: stable Disposition: PACU Specimens:: None Complications:: None
--- NOTE | 2018-06-11 19:23 | Consult Report ---
*Admission Date: 06/09/18 *Chief complaint: Large left ureteral stone *History of present illness: She was admitted 2 days ago with abdominal pain. He was found to have a large 3 x 10 mm stone mid left ureter with a grossly hydronephrotic left kidney. This appeared to be a chronic obstruction. We discussed options. 2 weeks ago he had cardiac stent placement and is on anticoagulation therapy. We are not able to stop his anticoagulation. He is hemodynamically stable. I discussed with cardiology and they felt it was safe to proceed with general anesthesia. We will proceed with left ureteroscopy and laser of the stone. Risks were discussed including retained stone fragments requiring additional inter- intervention. Patient states that he was having pain mildly for a couple of months. The appearance of his CAT scan with suggest that this stone has been present and obstructing for much longer. He has significant renal parenchymal thinning. His admission creatinine was 1.8. Review of Systems - *Neurologic Denies abnormal walking [facility] History Medical History: Reports:: Anxiety, Atherosclerotic Heart Disease, Coronary Artery Disease, Depression, Diabetes Mellitus Type 2, Hyperlipidemia, Hypertens ion, Kidney Stones Denies:: Cancer, Diabetes Mellitus Type 1, Internal Pacemaker, MRSA, Seizures Other Medical History: Reports: Arthritis Other Surgeries: Yes: Appendectomy, Cardiac Catheterization, Coronary Stent. No: Pacemaker Amputation: No Fractures: No - *Social History Educational Level: Completed Grade School Smoking Status: Former smoker Tobacco Type: cigarettes Alcohol Intake: never Occupational Status: retired Housing: house Household Members: family - Psychiatric History Expresses thoughts of harming self/others: None Suicide Plan Description: No Plan Pschychiatric History:: Reports:: Anxiety, Depression *Family Hx:: Coronary Artery Disease, Diabetes, Hypertension, Stroke Meds Home Medications Medication Instructions Recorded Confirmed Type atorvastatin 40 mg tablet 40 mg PO DAILY 09/24/17 06/10/18 History gabapentin 400 mg capsule 400 mg PO TID 09/24/17 06/09/18 History metformin 1,000 mg tablet 1,000 mg PO BID 09/24/17 06/09/18 History Canagliflozin [Invokana] 300 mg PO DAILY 05/31/18 06/09/18 History aspirin 81 mg tablet,delayed 81 mg PO DAILY 05/31/18 06/09/18 History release buspirone 10 mg tablet 10 mg PO BID 05/31/18 06/09/18 History losartan 100 mg tablet 100 mg PO DAILY tab 06/04/18 06/09/18 History ticagrelor 90 mg tablet 90 mg PO BID 06/04/18 06/09/18 History Carvedilol [Carvedilol 6.25mg Tab] 6.25 mg PO BID 06/09/18 06/09/18 History Tamsulosin HCl [Flomax 0.4mg 0.4 mg PO HS 06/09/18 06/09/18 History capsule] glipiZIDE [Glucotrol] 5 mg PO BID 06/09/18 06/09/18 History Tramadol HCl [Ultram 50mg 50 mg PO Q6HP PRN 06/10/18 06/10/18 History tablet] Venlafaxine HCl [Venlafaxine HCl 75 mg PO DAILY 06/10/18 06/10/18 History ER] Allergies Allergy/AdvReac Type Severity Reaction Status Date / Time No Known Allergies Allergy Verified 06/04/18 09:02 Exam Vital signs and Labs for Last 24 Hours: Temp Pulse Resp BP Pulse Ox 97.7 F 65 18 140/87 97 06/11/18 19:00 06/11/18 19:00 06/11/18 19:00 06/11/18 19:00 06/11/18 19:00 Laboratory Results - last 24 hr 06/10/18 20:46: POC Glucose 201 H 06/11/18 04:15: Urine Color Yellow, Urine Appearance Cloudy, Urine pH 5.5, Ur Specific [place] 1.025, Urine Protein Negative, Urine Glucose (UA) Negative, Urine Ketones Negative, Urine Blood 3+, Urine Nitrate Negative, Urine Bilirubin Negative, Urine Urobilinogen 0.2, Ur Leukocyte Esterase 1+ A, Urine RBC Tntc, Urine WBC 5-10, Urine Bacteria 1+ 06/11/18 06:15: POC Glucose 134 H 06/11/18 06:52: Sodium 141, Potassium 4.3, Chloride 105, Carbon Dioxide 28, Anion Gap 12.3, BUN 25 H D, Creatinine 1.80 H, Estimated Creat Clear 55, Estimated GFR 38 L, Est GFR ( Amer) 46 L, Glucose 132 H, Calcium 8.5 06/11/18 18:37: POC Glucose 123 H I & O for Last 24 hours: Intake & Output 06/08/18 06/09/18 06/10/18 06/11/18 23:59 23:59 23:59 23:59 Intake Total 1090 / 1090 1540 / 1540 Output Total 1800 / 1800 1450 / 1450 Balance -710 / -710 90 / 90 Weight 93.922 kg 94.858 kg 94.943 kg Results - Labs 06/09/18 12:30 06/11/18 06:52 Laboratory Results - last 24 hr 06/10/18 20:46: POC Glucose 201 H 06/11/18 04:15: Urine Color Yellow, Urine Appearance Cloudy, Urine pH 5.5, Ur Specific [place] 1.025, Urine Protein Negative, Urine Glucose (UA) Negative, Urine Ketones Negative, Urine Blood 3+, Urine Nitrate Negative, Urine Bilirubin Negative, Urine Urobilinogen 0.2, Ur Leukocyte Esterase 1+ A, Urine RBC Tntc, Urine WBC 5-10, Urine Bacteria 1+ 06/11/18 06:15: POC Glucose 134 H 06/11/18 06:52: Sodium 141, Potassium 4.3, Chloride 105, Carbon Dioxide 28, Anion Gap 12.3, BUN 25 H D, Creatinine 1.80 H, Estimated Creat Clear 55, Estimated GFR 38 L, Est GFR ( Amer) 46 L, Glucose 132 H, Calcium 8.5 06/11/18 18:37: POC Glucose 123 H Assessment and Plan (1) Gastroenteritis Current visit: Yes Status: Acute Category: Medical Code(s): K52.9 - Noninfective gastroenteritis and colitis, unspecified (2) Ureterolithiasis Current visit: Yes Status: Acute Category: Medical Code(s): N20.1 - Calculus of ureter (3) Essential hypertension Current visit: Yes Status: Acute Category: Medical Code(s): I10 - Essential (primary) hypertension (4) Diabetes mellitus type 2 in nonobese Current visit: Yes Status: Acute Category: Medical Code(s): E11.9 - Type 2 diabetes mellitus without complications (5) Headache Current visit: Yes Status: Acute Category: Medical Code(s): R51 - Headache (6) Hydronephrosis concurrent with and due to calculi of kidney and ureter Current visit: Yes Status: Acute Category: Medical Code(s): N13.2 - Hydronephrosis with renal and ureteral calculous obstruction
[2018-06-12 07:09] LABS: Basophils % 0.4 % (0.1-2.0); Eosinophils # 0.2 K/mm3 (0.0-0.4); Eosinophils % 2.8 % (0.1-12.0); Hemoglobin 12.5 g/dL (14.1-18.0); Lymphocytes # 1.2 K/mm3 (0.7-4.5); Lymphocytes % 14.3 K/mm3 (10-50); Mean Corpuscular HGB Conc 32.2 g/dL (31.8-35.4); Mean Corpuscular Hemoglobin 30.1 pg (27.0-31.2); Mean Corpuscular Volume 93.6 fl (80-94); Mean Platelet Volume 8.2 fl (7.4-10.4); Monocytes # 0.5 K/mm3 (0.1-1.0); Monocytes % 5.5 % (1.7-9.3); Neutrophils # 6.4 K/mm3 (1.8-7.8); Platelet Count 227 K/mm3 (142-424); Red Blood Count 4.16 M/mm3 (4.60-6.20); Red Cell Distribution Width 13.9 % (11.5-17.5); White Blood Count 8.3 K/mm3 (4.8-10.8)
[2018-06-12 07:16] LABS: Anion Gap 11.2 mEq/L (5-15); Potassium 4.2 mmoL/L (3.5-5.1)
== END 2018-06-12 09:49 | disposition home or self-care (01) ==
LOC: ER 12:02 → 2ND 12:02
PROVIDERS: ADMIT Internal Medicine Adolescent Medicine; ATTEND Family Medicine
CPT/HCPCS: 36415; 70450; 74021; 74022; 74150; 74450; 80048; 80053; 81001; 82962; 83690; 83880; 84484; 85025; 87086; 90686; 90732; 93005; 93976; 96365; 96375; 99285; C1769; C2617; G0378; J2405; Q9967

== ENCOUNTER → 2018-06-27 11:07 | Outpatient (CLI) | payer MEDICARE, SELFPAY ==
--- NOTE | 2018-06-27 11:08 | XR_ITS ---
XR KUB HISTORY: ITS.REASON: KIDNEY STONES ORDERING PHYSICIAN: Derek Kumar MD PATIENT AGE: 63 years COMPARISON: 06/09/2018 FINDINGS: Previously there was a 10 mm stone in the mid left ureter. This large stone is no longer apparent. There are multiple small stone fragments in the distal left ureter spanning a length of approximately 5 cm filling the distal utilized ureter forming a Steinstrasse /column of stones in the distal left ureter. IMPRESSION: There is a column of small stones in the distal left ureter spanning a length of 5 cm
== END ==
PROVIDERS: PCP Family Medicine; Visit Provider Urology
DX: N20.0 Calculus of kidney (principal)
CPT/HCPCS: 74018

== ENCOUNTER → 2018-07-02 13:51 | Outpatient (CLI) | payer MEDICARE, SELFPAY ==
--- NOTE | 2018-07-02 13:53 | XR_ITS ---
XR KUB HISTORY: Follow-up kidney stones ITS.REASON: kidney stones ORDERING PHYSICIAN: Derek Kumar MD PATIENT AGE: 63 years COMPARISON: 06/27/2018 FINDINGS: The column of small stones in the distal aspect of the left ureters not significant changed.. Nonspecific bowel gas pattern. Mild lumbar curvature convex left. IMPRESSION: No change in the column of small stones in the distal left ureter
--- NOTE | 2018-07-02 13:57 | CI_ITS ---
Cerebrovascular Exam Indications: 785.9 Bruit. IMPRESSIONS 1. The bilateral vertebral arteries are patent with normal antegrade flow. 2. Study suggests less than 20% stenosis involving the right internal carotid artery and the left internal carotid artery. History: Coronary artery disease. Risk factors: Hyperlipidemia. Carotid duplex study. Complete study and Doppler flow study including spectral analysis, color and castro scale imaging. Height: Height: 182.9cm. Height: 72in. Weight: Weight: 95.3kg. Weight: 209.6lb. Body mass index: BMI: 28.5kg/m^2. Body surface area: BSA: 2.22m^2. Location: Vascular laboratory. Patient status: Outpatient. Tables: Arterial flow: + +--------+--------+ Location V sys V ed + +--------+--------+ Right CCA - proximal 51.9cm/s 17.3cm/s + +--------+--------+ Right CCA - distal 57.4cm/s 17.3cm/s + +--------+--------+ Right ECA 112cm/s -------- + +--------+--------+ Right ICA - proximal 67.6cm/s 25.1cm/s + +--------+--------+ Right ICA - mid 64.4cm/s 22.8cm/s + +--------+--------+ Right ICA - distal 138cm/s 52.6cm/s + +--------+--------+ Right vertebral 36.1cm/s -------- + +--------+--------+ Left CCA - proximal 56.6cm/s 16.5cm/s + +--------+--------+ Left CCA - distal 78.6cm/s 15.7cm/s + +--------+--------+ Left ECA 108cm/s 92.3cm/s + +--------+--------+ Left ICA - proximal 53.4cm/s 14.1cm/s + +--------+--------+ Left ICA - mid 96.6cm/s 26.7cm/s + +--------+--------+ Left ICA - distal 58.1cm/s 23.8cm/s + +--------+--------+ Left vertebral 31.2cm/s -------- + +--------+--------+ Velocity ratios: + + + + + + Right, V sys Right, V ed Left, V sys Left, V ed + + + + + + Max ICA/dist CCA 2.4 3.04 1.23 1.7 + + + + + + (Report amended ) Electronically signed by: Gabe Ron [id number]
== END ==
PROVIDERS: PCP Family Medicine; Visit Provider Urology
DX: N20.0 Calculus of kidney (principal); R09.89 Other specified symptoms and signs involving the circulatory and respiratory systems; I25.10 Atherosclerotic heart disease of native coronary artery without angina pectoris; I10 Essential (primary) hypertension
CPT/HCPCS: 74018; 93880

== ENCOUNTER → 2018-07-30 09:40 | Outpatient (CLI) | payer MEDICARE, SELFPAY ==
--- NOTE | 2018-07-30 09:43 | XR_ITS ---
XR KUB HISTORY: Left flank pain ITS.REASON: Kidney Stones ORDERING PHYSICIAN: Derek Kumar MD PATIENT AGE: 63 years COMPARISON: 07/02/2018 FINDINGS: There remains a cast of small stones in the distal left ureter which appears slightly decreased in volume/number. This area measures 19 x 7 mm previously the stones extending for a length of 6 cm measuring up to 7 mm in width. IMPRESSION: Persistent column of stones in the distal left ureter which appear decreased in amount compared to the previous exam
== END ==
PROVIDERS: PCP Family Medicine; Visit Provider Urology
DX: N20.0 Calculus of kidney (principal)
CPT/HCPCS: 74018

== ENCOUNTER 2018-09-16 14:06 | Outpatient (RCR) | payer MEDICARE, SELFPAY | END 2018-11-13 08:37 | disposition home or self-care (01) | LOC: PT 14:06 | PROVIDERS: Visit Provider Internal Medicine | DX: I25.10 Atherosclerotic heart disease of native coronary artery without angina pectoris (principal); R06.02 Shortness of breath; R42 Dizziness and giddiness; I34.0 Nonrheumatic mitral (valve) insufficiency | CPT/HCPCS: 93798 ==

== ENCOUNTER → 2018-09-17 12:16 | Outpatient (CLI) | payer MEDICARE, SELFPAY ==
--- NOTE | 2018-09-17 12:20 | XR_ITS ---
XR KUB HISTORY: ITS.REASON: Kidney Stones ORDERING PHYSICIAN: Derek Kumar MD PATIENT AGE: 63 years COMPARISON: 07/30/2018 FINDINGS: There remains a cast of stones in the distal left ureter. A 3 mm stone is noted along the lower pole the left kidney. There is minimal lumbar curvature convex left. IMPRESSION: Overall no change in cast of small stones in the distal left ureter and left nephrolithiasis
== END ==
PROVIDERS: PCP Family Medicine; Visit Provider Urology
DX: N20.0 Calculus of kidney (principal)
CPT/HCPCS: 74018

== ENCOUNTER → 2018-10-25 08:53 | Outpatient (CLI) | payer MEDICARE, SELFPAY ==
--- NOTE | 2018-10-25 08:56 | CA_ITS ---
PROCEDURE: 2-D M-mode and color Doppler study INDICATIONS FOR THE TEST: Chest pain+ COPD Heart Murmur Tobacco Smoking Palpitations Fatigue Syncope Edema Hypertension+Diabetes Mellitus+ Rheumatic Fever SOB+FERRARI Obesity Hyperlipidemia+ Family History HD Additional History CAD,BRAN, GERD, MR PATIENT INFORMATION HEIGHT: 72 WEIGHT:207 GENDER: Male B/P:139/91 2-D/M-MODE INTERPRETATION: 2-D MEASUREMENTS OBSERVED VALUES IN CMS Right Ventricular Dimension (RVDd) 1.8 Interventricular Septum (Thickness)(IVsd) 1.0 Left Ventricular Internal Dimensions(LVIDd) 5.1 Left Ventricular Posterior Wall (Thickness)(LVPWd) 0.8 Aortic Root 3.5 Aortic Cusp Separation 2.1 Left Atrial Dimensions (LAD) 3.5 2D 1. Left atrium is mildly enlarged, left ventricle is normal size, mild concentric left ventricular hypertrophy, visually estimated ejection fraction approximately 45%, left ventricle is globally hypokinetic there is abnormal septal motion. 2. The right atrium and right ventricle are normal size and contractility. 3. The aortic valve is minimally thickened and fibrosed. 4. The mitral and tricuspid valvular grossly normal. 5. The pulmonic valve is poorly visualized. 6. No significant pericardial effusion noted. DOPPLER INTERROGATION: Doppler interrogation of the aortic, mitral and tricuspid valvular presence of mild mitral and tricuspid regurgitation, tricuspid regurgitation jet velocity is inadequate for calculation of the right ventricular systolic pressure, Doppler evidence of impaired LV relaxation seen, there is no tissue Doppler performed to estimate left atrial pressure. CONCLUSION: 1. Mildly enlarged left atrium, normal left ventricular size, mild concentric left ventricular hypertrophy, visually estimated ejection fraction 45%, left ventricle is globally hypokinetic, there is abnormal septal motion. Doppler evidence of impaired LV relaxation seen, there is no tissue Doppler performed to estimate left atrial pressure. 2. Mild mitral and tricuspid regurgitation 3. No significant pericardial effusion noted.
--- NOTE | 2018-10-25 09:35 | US_ITS ---
US gallbladder HISTORY: Upset stomach, chest pain, belching ITS.REASON: chest pain, belching ORDERING PHYSICIAN: Dinh Fleming MD PATIENT AGE: 63 years Comparison: None FINDINGS: PANCREAS: Unremarkable. No obvious mass or abnormal fluid collection. No ductal dilatation LIVER: Increased echogenicity of liver consistent with fatty liver. No biliary ductal dilatation. There is a 2.5 x 1.8 cm nodule within the right lobe of the liver with slight decreased heterogeneous echogenicity. RIGHT KIDNEY: Unremarkable. Normal size and echogenicity. No hydronephrosis GALLBLADDER: No gallstones, gallbladder wall thickening, pericholecystic fluid, or biliary dilatation. IMPRESSION: 1. No gallstones . 2. Fatty liver 3. 2.5 cm hypoechoic lesion of the right hepatic lobe. Suggest CT or MRI of the liver without and with contrast with hemangioma protocol for further evaluation
== END ==
PROVIDERS: PCP Family Medicine; Visit Provider Internal Medicine
DX: R07.9 Chest pain, unspecified; R14.2 Eructation; K21.9 Gastro-esophageal reflux disease without esophagitis; E11.69 Type 2 diabetes mellitus with other specified complication; E66.9 Obesity, unspecified; E78.5 Hyperlipidemia, unspecified; I11.9 Hypertensive heart disease without heart failure; I25.10 Atherosclerotic heart disease of native coronary artery without angina pectoris; I34.0 Nonrheumatic mitral (valve) insufficiency; I65.29 Occlusion and stenosis of unspecified carotid artery; R06.02 Shortness of breath; R42 Dizziness and giddiness; Z79.84 Long term (current) use of oral hypoglycemic drugs; Z68.28 Body mass index [BMI] 28.0-28.9, adult; Z87.891 Personal history of nicotine dependence
CPT/HCPCS: 76705; 93306

== ENCOUNTER → 2018-10-29 10:45 | Outpatient (CLI) | payer MEDICARE, SELFPAY ==
--- NOTE | 2018-10-29 10:48 | XR_ITS ---
XR KUB HISTORY: ITS.REASON: kidney stones ORDERING PHYSICIAN: Derek Kumar MD PATIENT AGE: 63 years COMPARISON: 09/17/2018 FINDINGS: There are punctate bilateral renal calculi noted measuring up to 3 mm in the lower pole on the left. 2 mm stone present in the lower pole on the right. There is a column of stones present in the distal left ureter not significantly changed from 09/17/2018. No other significant anomalies are evident. IMPRESSION: 1. No change in the column of small stones in the distal left ureter. 2. Bilateral nephrolithiasis
== END ==
PROVIDERS: PCP Family Medicine; Visit Provider Urology
DX: N20.0 Calculus of kidney (principal)
CPT/HCPCS: 74018

== ENCOUNTER → 2018-11-18 12:25 | Outpatient (CLI) | payer MEDICARE, SELFPAY ==
--- NOTE | 2018-11-18 12:26 | NM_ITS ---
NM renal flow and function Ordering Physician: Derek Kumar MD Patient Age: 63 years: Male HISTORY: ITS.REASON: hydronephrosis . Previous left ureteral calculus. Lithotripsy 2018 Prominent left hydronephrosis with Left renal atrophy on prior CT exam TECHNIQUE: Following administration of 10.61 mCi MAG3 images of the kidneys were obtained. Initial 1 minute flow images were initially performed; with subsequent 45 minute prolonged renogram images then obtained Lasix was administered at 15 minutes 40 mg. COMPARISON :CT abdomen 06/09/2018 FINDINGS Following administration of MAG3: FLOW images show similar time to plateau/peak at both right and left kidney. Approximately 25-30 seconds. No strong evidence of renal artery stenosis 90 kidney However there is much less activity however at the left kidney than right on these early images & nephrogram phase. . Intense nephrogram is seen on the right , with only faint nephrogram on the left colon Split function shows 91.7% activity at Right Kidney; with only 8.3% activity at Left Kidney. This reflects the renal cortical thinning & atrophy as seen on the previous CT study from 2018. Implies long-standing changes and and possibly a chronic left obstructive uropathy.. No good evidence of renal artery stenosis with this appearance.. . The 45 minute renogram show normal pattern at the right kidney with 3.5 minute time to peak activity/nephrogram with subsequent clearing of activity from the right kidney and a typical progressive fashion. The left kidney shows a minimal but progressive delayed activity. Delayed Nephrogram possibly from persistent obstructive uropathy. There is slow filling early accumulation of activity into the dilated left renal pelvis. At 15 minutes (900 seconds) 40 mg Lasix was administered IV. Subsequent to this we do see increased activity at the dilated left renal pelvis. There also appears to be more prominent activity within the left ureter implying that the mid and distal left ureter may be dilated. This may benefit from a follow-up CT to further evaluate if there is a residual distal ureteral stone. The bladder was not included on these images but the top of the bladder is seen to fill on the latter images. IMPRESSION. 1. Small diminutive left kidney, with faint delayed nephrogram and dilated left renal pelvis . Pattern suggestion of persistent obstructive uropathy Intense nephrogram with majority of function & activity seen in the right kidney. Split renal function: Only 8.3% LEFT KIDNEY. With 91.7 % activity RIGHT KIDNEY 2. Dilated left renal pelvis.: There was slight increased excretion, with increasingly prominent activity, seen within the dilated left renal pelvis, following the administration 40 mg of Lasix at 15 minutes (900 seconds). Also note persistent greater activity throughout the distal left ureter vs right over time- with this appearance cannot exclude some mild persistent distal left ureteral dilatation/obstruction . Patient may benefit from a follow-up CT abdomen; if one has not been performed this year elsewhere
== END ==
PROVIDERS: PCP Family Medicine; Visit Provider Urology
DX: N13.2 Hydronephrosis with renal and ureteral calculous obstruction (principal)
CPT/HCPCS: 78707; A9562

== ENCOUNTER → 2019-01-07 12:01 | Outpatient (CLI) | payer MEDICARE, SELFPAY ==
[2019-01-07 13:16] LABS: Anion Gap 12.6 mEq/L (5-15); Blood Urea Nitrogen 17 mg/dL (7-18); Calcium 8.7 mg/dL (8.5-10.1); Carbon Dioxide 25 mmol/L (21.0-32.0); Chloride 104 mmol/L (98-107); Creatinine,Serum 1.78 mg/dL (0.70-1.30); Estimated Glomerular Filt Rate 39 ml/min (>60); GFR (African American) 47 ML/MIN (>60); Glucose 159 mg/dL (74-106); Potassium 4.6 mmoL/L (3.5-5.1); Sodium 137 mmol/L (136-145)
== END ==
PROVIDERS: Visit Provider Physician Assistant
DX: E11.69 Type 2 diabetes mellitus with other specified complication (principal); E66.9 Obesity, unspecified; E78.49 Other hyperlipidemia; I11.9 Hypertensive heart disease without heart failure; I25.10 Atherosclerotic heart disease of native coronary artery without angina pectoris; I34.0 Nonrheumatic mitral (valve) insufficiency; I42.9 Cardiomyopathy, unspecified; I65.23 Occlusion and stenosis of bilateral carotid arteries; K21.9 Gastro-esophageal reflux disease without esophagitis; N18.9 Chronic kidney disease, unspecified; R42 Dizziness and giddiness; Z79.84 Long term (current) use of oral hypoglycemic drugs
CPT/HCPCS: 36415; 80048

== ENCOUNTER → 2019-01-14 08:10 | Outpatient (CLI) | payer MEDICARE, SELFPAY ==
[2019-01-14 09:35] LABS: Anion Gap 14.7 mEq/L (5-15); Blood Urea Nitrogen 26 mg/dL (7-18); Calcium 8.9 mg/dL (8.5-10.1); Carbon Dioxide 27 mmol/L (21.0-32.0); Chloride 105 mmol/L (98-107); Estimated Glomerular Filt Rate 36 ml/min (>60); GFR (African American) 43 ML/MIN (>60); Glucose 182 mg/dL (74-106); Potassium 4.7 mmoL/L (3.5-5.1); Sodium 142 mmol/L (136-145)
== END ==
PROVIDERS: Visit Provider Nurse Practitioner Family
DX: R06.02 Shortness of breath; R42 Dizziness and giddiness; E11.69 Type 2 diabetes mellitus with other specified complication; E66.9 Obesity, unspecified; E78.49 Other hyperlipidemia; I11.9 Hypertensive heart disease without heart failure; I25.10 Atherosclerotic heart disease of native coronary artery without angina pectoris; I34.0 Nonrheumatic mitral (valve) insufficiency; I42.9 Cardiomyopathy, unspecified; I65.23 Occlusion and stenosis of bilateral carotid arteries; K21.9 Gastro-esophageal reflux disease without esophagitis; K76.9 Liver disease, unspecified; N18.9 Chronic kidney disease, unspecified; Z79.84 Long term (current) use of oral hypoglycemic drugs; Z87.891 Personal history of nicotine dependence
CPT/HCPCS: 36415; 80048; 83880

== ENCOUNTER → 2019-01-17 07:48 | Outpatient (CLI) | payer MEDICARE, SELFPAY ==
--- NOTE | 2019-01-17 07:49 | US_ITS ---
US liver HISTORY: Follow-up liver lesion ITS.REASON: hepatic lesion ORDERING PHYSICIAN: Dinh Fleming MD PATIENT AGE: 63 years COMPARISON: 10/25/2018, 06/09/2018 FINDINGS: PANCREAS:Unremarkable. No obvious mass or abnormal fluid collection. No ductal dilatation LIVER:There is a 2.5 x 2.3 x 2.2 cm somewhat lobular hypoechoic lesion in the right hepatic lobe. This does have blood flow and may represent a hemangioma there is some lobularity of the margin however. RIGHT KIDNEY:Unremarkable. Normal size and echogenicity. No hydronephrosis GALLBLADDER:No gallstones, gallbladder wall thickening, pericholecystic fluid, or biliary dilatation. IMPRESSION: Overall no significant change in the hypoechoic liver lesion in the right hepatic lobe. This may represent a hemangioma. However, there is some lobularity of the margins. Continued follow-up is recommended. Suggest CT or MRI with hemangioma protocol
== END ==
PROVIDERS: PCP Family Medicine; Visit Provider Internal Medicine
DX: K76.9 Liver disease, unspecified (principal)
CPT/HCPCS: 76705

== ENCOUNTER → 2019-01-28 08:57 | Outpatient (CLI) | payer MEDICARE, SELFPAY ==
--- NOTE | 2019-01-28 09:02 | XR_ITS ---
XR chest 2V HISTORY: ITS.REASON: dyspnea ORDERING PHYSICIAN: Cynthia Donovan APRN PATIENT AGE: 64 years COMPARISON: 10/14/2018 FINDINGS: The cardiomediastinal silhouette and pulmonary vascularity are within normal limits. The lungs are clear without infiltrates, suspicious nodules, or pleural effusions. Coronary artery stent is present No acute bony abnormalities. IMPRESSION: No change with no acute finding
[2019-01-28 12:04] LABS: Blood Urea Nitrogen 34 mg/dL (7-18); Calcium 8.8 mg/dL (8.5-10.1); Carbon Dioxide 26 mmol/L (21.0-32.0); Chloride 102 mmol/L (98-107); Creatinine,Serum 2.12 mg/dL (0.70-1.30); Estimated Glomerular Filt Rate 31 ml/min (>60); GFR (African American) 38 ML/MIN (>60); Glucose 234 mg/dL (74-106); Sodium 138 mmol/L (136-145)
== END ==
PROVIDERS: Visit Provider Nurse Practitioner Family
DX: N18.9 Chronic kidney disease, unspecified; M25.50 Pain in unspecified joint; E78.49 Other hyperlipidemia; I11.9 Hypertensive heart disease without heart failure; I25.10 Atherosclerotic heart disease of native coronary artery without angina pectoris; I34.0 Nonrheumatic mitral (valve) insufficiency; M79.10 Myalgia, unspecified site; R06.02 Shortness of breath; R07.9 Chest pain, unspecified
CPT/HCPCS: 36415; 71046; 80048; 86618

== ENCOUNTER → 2019-02-06 08:46 | Outpatient (CLI) | payer MEDICARE, SELFPAY ==
[2019-02-06 11:12] LABS: Anion Gap 14.6 mEq/L (5-15); Blood Urea Nitrogen 35 mg/dL (7-18); Calcium 8.9 mg/dL (8.5-10.1); Carbon Dioxide 28 mmol/L (21.0-32.0); Chloride 103 mmol/L (98-107); Creatinine,Serum 2.13 mg/dL (0.70-1.30); Estimated Glomerular Filt Rate 31 ml/min (>60); GFR (African American) 38 ML/MIN (>60); Glucose 230 mg/dL (74-106); Potassium 4.6 mmoL/L (3.5-5.1); Sodium 141 mmol/L (136-145)
== END ==
PROVIDERS: Visit Provider Internal Medicine
DX: E78.5 Hyperlipidemia, unspecified (principal); I11.9 Hypertensive heart disease without heart failure; I25.10 Atherosclerotic heart disease of native coronary artery without angina pectoris; I34.0 Nonrheumatic mitral (valve) insufficiency; M79.10 Myalgia, unspecified site; N18.9 Chronic kidney disease, unspecified; R06.02 Shortness of breath
CPT/HCPCS: 36415; 80048

== ENCOUNTER → 2019-02-10 09:22 | Outpatient (CLI) | payer MEDICARE, SELFPAY ==
[2019-02-10 11:02] LABS: Anion Gap 15.7 mEq/L (5-15); Blood Urea Nitrogen 28 mg/dL (7-18); Calcium 8.4 mg/dL (8.5-10.1); Carbon Dioxide 26 mmol/L (21.0-32.0); Chloride 106 mmol/L (98-107); Creatinine,Serum 1.98 mg/dL (0.70-1.30); Estimated Glomerular Filt Rate 34 ml/min (>60); GFR (African American) 41 ML/MIN (>60); Glucose 254 mg/dL (74-106); Potassium 4.7 mmoL/L (3.5-5.1); Sodium 143 mmol/L (136-145)
== END ==
PROVIDERS: Visit Provider Internal Medicine
DX: I42.9 Cardiomyopathy, unspecified (principal); N18.9 Chronic kidney disease, unspecified
CPT/HCPCS: 36415; 80048

== ENCOUNTER → 2019-07-28 10:10 | Outpatient (CLI) | payer MEDICARE, SELFPAY ==
[2019-07-28 12:20] LABS: Anion Gap 14.4 mEq/L (5-15); Blood Urea Nitrogen 28 mg/dL (7-18); Calcium 8.9 mg/dL (8.5-10.1); Carbon Dioxide 28 mmol/L (21.0-32.0); Chloride 106 mmol/L (98-107); Creatinine,Serum 1.85 mg/dL (0.70-1.30); Estimated Glomerular Filt Rate 37 ml/min (>60); GFR (African American) 44 ML/MIN (>60); Glucose 180 mg/dL (74-106); Potassium 4.4 mmoL/L (3.5-5.1); Sodium 144 mmol/L (136-145)
== END ==
PROVIDERS: Visit Provider Urology
DX: E78.5 Hyperlipidemia, unspecified (principal); I10 Essential (primary) hypertension; I25.10 Atherosclerotic heart disease of native coronary artery without angina pectoris; I42.9 Cardiomyopathy, unspecified; R06.02 Shortness of breath
CPT/HCPCS: 36415; 80048

== ENCOUNTER → 2019-12-03 08:59 | Outpatient (CLI) | payer MEDICARE, SELFPAY ==
--- NOTE | 2019-12-03 09:01 | CA_ITS ---
APPROVED REPORT EXAM: Comprehensive 2D, Doppler, and color-flow Echocardiogram [employer] Metal Shop Foreman: Vonda Hook RVT Ht: 6 ft 0 in Wt: 214lbs BSA: 2.19 BP: 131/79 mmHg Indications: CM EF OF 45% 11/05,CAD,DD,BRAN,GERD,DM,HLD,HTN,EX SMOKER 2D Dimensions LVOT 2.26 cm (M/F) 1.5-2.5 M-Mode Dimensions RVDd 2.88 cm (0.9-2.6) LVDd 4.63 cm (3.5-5.7) LVDs 3.26 cm (3.5-5.7) IVSd 0.80 cm (0.6-1.1) PWd 0.61 cm (0.6-1.1) EF (Teich) 56.70% FS 29.60% EDV (Teich) 98.80 mL ESV (Teich) 42.80 mL LV Diastology E/A Ratio 0.50 Mitral Valve MV A Velocity 69.00 (40-130 cm/s) Left Ventricle Left atrium is mildly enlarged, left ventricle is normal size, mild concentric left ventricular hypertrophy, visually estimated ejection fraction 50% with no regional wall motion abnormality, endocardial surfaces are somewhat poorly visualized. Grade 1 diastolic dysfunction seen without tissue Doppler evidence of raise left atrial pressure. Right Ventricle Right atrium and right ventricle mildly enlarged with normal contractility. Aortic Valve Aortic valve is minimally thickened and fibrosed, there is no aortic stenosis or aortic insufficiency. Mitral Valve Mitral valve is grossly normal, there is mild mitral regurgitation. Tricuspid Valve Tricuspid valve grossly normal, there is mild tricuspid regurgitation, tricuspid regurgitation jet velocity is inadequate for calculation of the right ventricular systolic pressure. Pulmonic Valve Pulmonic valve is poorly visualized. Great Vessels Aortic root is normal size. Pericardium No significant pericardial effusion noted. Conclusion 1. Mild biatrial abdomen, normal left ventricular size, mild concentric left ventricular hypertrophy, visually estimated ejection fraction of 50% with no regional wall motion abnormality, endocardial surfaces are somewhat poorly visualized, grade 1 diastolic dysfunction seen without tissue Doppler evidence of raise left atrial pressure. 2. Mildly enlarged right ventricle with normal contractility. 3. Mild mitral and tricuspid regurgitation. 4. No significant pericardial effusion noted. Electronically signed by : Ramez Riddle, 12/04/2019 12:20:58
== END ==
PROVIDERS: PCP Family Medicine; Visit Provider Nurse Practitioner Family
DX: I25.10 Atherosclerotic heart disease of native coronary artery without angina pectoris; R06.02 Shortness of breath; R42 Dizziness and giddiness; E11.69 Type 2 diabetes mellitus with other specified complication; E66.9 Obesity, unspecified; E78.2 Mixed hyperlipidemia; I11.9 Hypertensive heart disease without heart failure; I34.0 Nonrheumatic mitral (valve) insufficiency; I42.9 Cardiomyopathy, unspecified; I65.23 Occlusion and stenosis of bilateral carotid arteries; K21.9 Gastro-esophageal reflux disease without esophagitis; N18.9 Chronic kidney disease, unspecified; Z79.84 Long term (current) use of oral hypoglycemic drugs; Z87.891 Personal history of nicotine dependence
CPT/HCPCS: 93306

== ENCOUNTER → 2020-01-27 14:28 | Outpatient (CLI) | payer MEDICARE, SELFPAY ==
[2020-01-27 14:52] LABS: Basophils # 0.1 K/mm3 (0-0.2); Basophils % 0.6 % (0.1-2.0); Eosinophils # 0.5 K/mm3 (0.0-0.4); Hematocrit 45.4 % (42.0-52.0); Hemoglobin 15.3 g/dL (14.1-18.0); Lymphocytes # 2.6 K/mm3 (0.7-4.5); Lymphocytes % 27.1 % (10-50); Mean Corpuscular HGB Conc 33.7 g/dL (31.8-35.4); Mean Corpuscular Hemoglobin 31.5 pg (27.0-31.2); Mean Corpuscular Volume 93.4 fl (80-94); Mean Platelet Volume 8.4 fl (7.4-10.4); Monocytes # 0.5 K/mm3 (0.1-1.0); Monocytes % 5.5 % (1.7-9.3); Neutrophils % 61.7 % (37.0-80.0); Platelet Count 207 K/mm3 (142-424); Red Blood Count 4.86 M/mm3 (4.60-6.20); Red Cell Distribution Width 14.1 % (11.5-17.5); White Blood Count 9.7 K/mm3 (4.8-10.8)
[2020-01-27 15:41] LABS: Chloride 105 mmol/L (98-107); Potassium 4.9 mmoL/L (3.5-5.1); Sodium 139 mmol/L (136-145)
[2020-01-27 15:43] LABS: Blood Urea Nitrogen 23 mg/dl (9-20); Estimated Glomerular Filt Rate 38 ml/min (>60); GFR (African American) 46 ML/MIN (>60)
[2020-01-27 15:44] LABS: Alanine Aminotransferase 22 U/L (12-78); Albumin Level 4.4 g/dl (3.5-5.0); Alkaline Phosphatase 110 U/L (38-126); Anion Gap 9.9 mEq/L (5-15); Aspartate Amino Transferase 27 U/L (17-59); Bilirubin,Direct 0.4 mg/dl (0.0-0.4); Bilirubin,Indirect 0.9 mg/dL (0.0-0.9); Bilirubin,Total 1.3 mg/dl (0.2-1.3); Calcium 9.4 mg/dl (8.4-10.2); Carbon Dioxide 29 mmol/L (22.0-30.0); Chol/HDL Ratio 3.6 (1-3.5); Cholesterol 152 mg/dl (140-200); Glucose 130 mg/dl (74-100); HDL Cholesterol 42 mg/dl (40-60); Total Protein,Serum 7.2 g/dl (6.3-8.2); Triglycerides 148 mg/dl (30-150); VLDL Cholesterol 30 mg/dL (0-40)
[2020-01-27 15:56] LABS: Direct LDL Cholesterol 99.54 mg/dL (100-129)
[2020-01-27 16:00] LABS: Free T4 (Free Thyroxine) 1.33 ng/dl (0.78-2.19)
[2020-01-27 16:14] LABS: Thyroid Stimulating Hormone 2.29 uIU/mL (0.465-4.68)
== END ==
PROVIDERS: Visit Provider Nurse Practitioner Family
DX: E11.69 Type 2 diabetes mellitus with other specified complication (principal); E66.9 Obesity, unspecified; I11.9 Hypertensive heart disease without heart failure; I25.10 Atherosclerotic heart disease of native coronary artery without angina pectoris; I34.0 Nonrheumatic mitral (valve) insufficiency; I42.9 Cardiomyopathy, unspecified; I48.92 Unspecified atrial flutter; I51.89 Other ill-defined heart diseases; I65.23 Occlusion and stenosis of bilateral carotid arteries; R00.2 Palpitations; I20.8 Other forms of angina pectoris
CPT/HCPCS: 36415; 80048; 80061; 80076; 84439; 84443; 85025

== ENCOUNTER → 2020-02-03 11:27 | Outpatient (CLI) | payer MEDICARE, SELFPAY ==
--- NOTE | 2020-02-03 | CA_ITS ---
APPROVED REPORT Exam: Pharmacologic Technologist: Rosanna Shepherd Ht: 6 ft 0 in Wt: 205 lbs BSA: 2.15 m2 HR: 49 bpm BP: 152/80 mmHg Medical History Medications: Furosemide (LASIX),,,,, Isosorbide,,,,, Aspirin,,,,, Metoprolol,,,,, Gabapentin,,,,, Atorvastatin,,,,, Glipizide,,,,, Ramipril,,,,, TAMSULOSIN,,,,, CloPIdogrel,,,,, Januvia,,,,, RIvaROXABAN,,,,, Stress Test Details Test: LEXISCAN HR Resting HR: 50 bpm Max Heart Rate (APMHR): 153 bpm Max HR Achieved: 76 bpm Target HR (85% APMHR): 130 bpm % of APMHR: 49 Recovery HR: 58 bpm BP Resting BP: 152.0/80.0 mmHg Max BP: 152.0/80.0 mmHg Recovery BP: 146.0/82.0 mmHg ECG Clinical Exercise duration: 04:28 min Highest Stage Achieved: Stress ECG Conclusion Resting ECG: Marked sinus bradycardia, old anteroseptal MT, ST-T abnormalities inferiorly and laterally Symptoms: Malaise, nausea. No chest pain Arrhythmias/Ectopy: Rare PVC ST-T Changes: Mild exaggeration of baseline ST-T abnormalities Conclusion: Non-diagnostic Lexiscan stress. Myoview images reported separately. Electronically signed by : Dinh Fleming, 02/06/2020 11:30:00
--- NOTE | 2020-02-03 11:27 | NM_ITS ---
APPROVED REPORT Exam: Nuclear Stress Test Indication: CAD, 4 STENTS, CHF, DYSRYTHMIA, HTN, D.M., HYPERLIPIDEMIA, FM HX, SOB, PALIPITATIONS, SYNCOPE, FATIGUE Patient Location: Outpatient Stress Tech: Rosanna Shepherd [place] Tech:Nanette Barrios, ARRT, RT (R)(N) Ht: 6 ft 0 in Wt: 205 lbs HR: 49 bpm BP: 152/80 mmHg BSA: 2.15 m2 History: CAD, 4 STENTS, CHF, DYSRYTHMIA, HTN, D.M., HYPERLIPIDEMIA, FM HX, SOB, PALIPITATIONS, SYNCOPE, FATIGUE Procedure: Patient received a 0.4 mg of intravenous Lexiscan, resting heart rate 49 bpm, resting blood pressure 152/80 mmHg, with Lexiscan maximum heart rate achived was 73 bpm which is % of the maximum predicted heart rate and blood pressure was 117/65 mmHg. With Lexiscan, patient denied any complaint of chest pain. Cardiac Stress and Resting SPECT Images: Cardiac Stress and Resting SPECT images were obtained using technetium 99m Myoview 28.1 mCi stress and 11.25 mCi at rest. The ejection fraction is low at 39%. The global hypokinesia with some apical dyskinesia. There is some decreased activity within the anteroseptal region possibly due to breast attenuation artifact. No definite fixed or reversible defects are evident. Conclusion: The ejection fraction is low at 39%. The global hypokinesia with some apical dyskinesia. There is some decreased activity within the anteroseptal region possibly due to breast attenuation artifact. No definite fixed or reversible defects are evident. Electronically signed by : Gabe Ron MD 02/06/2020 14:37:44
--- NOTE | 2020-02-03 12:29 | HMH.ITSHM ---
Current Home Medications as stated by this patient Dano Bean or phlebotomy services representative. []ASA JANUVIA GLIPIZIDE FUROSEMIDE PLAVIX TAMSULOSIN ATORVASTATIN GABAPENTIN RAMIPRIL COMBIGAN NITRO B12 METOPROLOL XARELTO
== END ==
PROVIDERS: PCP Family Medicine; Visit Provider Nurse Practitioner Family
DX: E78.5 Hyperlipidemia, unspecified (principal); I10 Essential (primary) hypertension; I11.9 Hypertensive heart disease without heart failure; I20.9 Angina pectoris, unspecified; I25.10 Atherosclerotic heart disease of native coronary artery without angina pectoris; I34.0 Nonrheumatic mitral (valve) insufficiency; I42.9 Cardiomyopathy, unspecified; I51.89 Other ill-defined heart diseases; I65.29 Occlusion and stenosis of unspecified carotid artery; N18.9 Chronic kidney disease, unspecified; R06.02 Shortness of breath
CPT/HCPCS: 78452; 93017; A9502; J2785

== ENCOUNTER → 2020-02-24 15:02 | Outpatient (POV) | payer MEDICARE, SELFPAY | PROVIDERS: PCP Family Medicine; Visit Provider Dermatology | DX: Z00.00 Encounter for general adult medical examination without abnormal findings (principal) ==

== ENCOUNTER 2020-02-26 11:23 | Day surgery (SDC) | payer MEDICARE, SELFPAY ==
[2020-02-26] VITALS (13 sets, daily range): BP systolic 142–182; BP diastolic 82–100; PULSE 52–90; RESP 16–20; TEMP 36.4; O2SAT 94–99; BMI 28.7
--- NOTE | 2020-02-26 | IR_ITS ---
APPROVED REPORT Patient Location: Outpatient [facility] Programmer: JASON Davis RT (R) PROCEDURES Left heart catheterization Left ventriculogram Selective coronary angiogram Drug-eluting stent deployment to the distal dominant right coronary artery INDICATION High risk abnormal Myoview, Coronary artery disease, Angina pectoris Informed consent was obtained prior to the procedure. COMPLICATIONS None Estimated Blood Loss: less than 10ml TECHNIQUE One percent lidocaine used to anesthetize the right anterior aspect of the wrist. The right radial artery was accessed via the Seldinger technique. A 6 Tajik sheath was placed in the right radial artery. 2.5 mg of verapamil, 800 mcg of nitroglycerin, 1mg Lidocaine and 5000 U Heparin were given through the arterial sheath. The trap catheter was also used to perform left heart catheterization, left ventriculogram and selective coronary angiogram. At the end of the diagnostic angiogram therapeutic heparin was administered giving a therapeutic ACT. A Papa catheter was placed in the dominant right coronary artery and a BMW wire was used to traverse the stenosis distally. A 3.5 x 38 mm resolute mansoor stent was deployed at 12 breonna reducing the severe stenosis to 0%. IRENE-3 flow was present before and after the procedure. At the end the procedure the apparatus was removed the sheath was removed good hemostasis was achieved using TR banding patient was transferred to the postop holding area stable condition ANGIOGRAPHIC RESULTS The left main artery Normal The left anterior descending artery Is a large caliber vessel with a widely patent ostium and proximal segment followed by a stent which extends from the proximal segment throughout the mid segment and is widely patent free of in-stent restenosis with excellent proximal and distal transitioning. The distal LAD has a smooth 30% stenosis along a tortuous bend. The jailed first diagonal artery has IRENE-3 flow is 2 mm in diameter and has an ostial proximal 80% stenosis The circumflex artery Is a nondominant yet large caliber vessel with mild 10% luminal irregularities The right coronary artery Is a large dominant vessel with proximal 30% stenosis mid vessel 30% stenosis distal eccentric 50% stenosis and a distal concentric 70 to 80% stenosis The LOGAN ventriculogram reveals Dilated ventricle ejection fraction 40% The left ventricular end-diastolic pressure 10 mmHg IMPRESSION Widely patent proximal and mid LAD stent as described above Jailed small first diagonal artery with excellent IRENE-3 3 flow and unlikely to be causing any clinical sequelae Severe stenosis in the distal large caliber dominant right coronary artery Accessible stenting of the distal dominant right coronary artery severe disease reduced to 0% with one drug-eluting stent Reduced ejection fraction Normal left ventricular end-diastolic pressure PLAN 1. Dual antiplatelet therapy 2. Aspirin 81 mg daily plus Xarelto plus Plavix for 1 month then discontinue aspirin and continue Plavix and Xarelto 3. LDL less than 55 4. Standard therapy for systolic congestive heart failure 5. Avoidance of tobacco products 6. Cardiac rehabilitation Electronically signed by : Dinh Fleming, 02/26/2020 13:04:30
[2020-02-26 11:57] LABS: Basophils # 0.1 K/mm3 (0-0.2); Basophils % 1.2 % (0.1-2.0); Eosinophils # 0.5 K/mm3 (0.0-0.4); Eosinophils % 4.2 % (0.1-12.0); Hematocrit 46.9 % (42.0-52.0); Hemoglobin 16.4 g/dL (14.1-18.0); Lymphocytes # 2.5 K/mm3 (0.7-4.5); Lymphocytes % 22.7 % (10-50); Mean Corpuscular Volume 91.4 fl (80-94); Monocytes # 0.5 K/mm3 (0.1-1.0); Monocytes % 4.8 % (1.7-9.3); Neutrophils # 7.3 K/mm3 (1.8-7.8); Platelet Count 223 K/mm3 (142-424); Red Blood Count 5.13 M/mm3 (4.60-6.20); Red Cell Distribution Width 14.4 % (11.5-17.5); White Blood Count 10.8 K/mm3 (4.8-10.8)
[2020-02-26 12:06] LABS: Anion Gap 11.2 mEq/L (5-15); Blood Urea Nitrogen 25 mg/dl (9-20); Calcium 9.3 mg/dl (8.4-10.2); Carbon Dioxide 28 mmol/L (22.0-30.0); Chloride 102 mmol/L (98-107); Creatinine Clearance Estimated 54 mL/min (50-200); Estimated Glomerular Filt Rate 38 ml/min (>60); GFR (African American) 46 ML/MIN (>60); Glucose 168 mg/dl (74-100); Potassium 4.2 mmoL/L (3.5-5.1); Sodium 137 mmol/L (136-145)
[2020-02-26 14:41] LABS: CATHL Activated Clotting Time 326 SEC (74-125)
--- NOTE | 2020-02-26 14:46 | HMH.PHACLD ---
Dano Bean has received discharge medication counseling on the following medications: ASPIRIN 81 MG DAILY ATROVASTATIN 40 MG HS CLOPIDOGREL 75 MG DAILY METOPROLOL SUCCINATE 50 MG DAILY RAMIPRIL 2.5 MG DAILY
== END 2020-02-26 16:02 | disposition home or self-care (01) ==
LOC: CATHLAB 11:28
PROVIDERS: PCP Family Medicine; Visit Provider Internal Medicine
DX: I25.118 Atherosclerotic heart disease of native coronary artery with other forms of angina pectoris (principal); I50.32 Chronic diastolic (congestive) heart failure; I34.0 Nonrheumatic mitral (valve) insufficiency; I48.92 Unspecified atrial flutter; I65.23 Occlusion and stenosis of bilateral carotid arteries; Z79.01 Long term (current) use of anticoagulants; Z79.02 Long term (current) use of antithrombotics/antiplatelets; N18.9 Chronic kidney disease, unspecified; I13.0 Hypertensive heart and chronic kidney disease with heart failure and stage 1 through stage 4 chronic kidney disease, or unspecified chronic kidney disease; E11.22 Type 2 diabetes mellitus with diabetic chronic kidney disease; Z79.84 Long term (current) use of oral hypoglycemic drugs
CPT/HCPCS: 80048; 85025; 85347; 92928; 93458; 99152; C1725; C1769; C1876; C9600; J1644; Q9967

== ENCOUNTER → 2020-06-11 09:28 | Outpatient (CLI) | payer MEDICARE, SELFPAY | PROVIDERS: PCP Family Medicine; Visit Provider Physician Assistant | DX: R06.02 Shortness of breath (principal) | CPT/HCPCS: 94060; 94618; 94726; 94729 ==

== ENCOUNTER → 2020-06-30 10:51 | Outpatient (CLI) | payer MEDICARE, SELFPAY ==
[2020-06-30 13:06] LABS: Chloride 102 mmol/L (98-107); Potassium 4.6 mmoL/L (3.5-5.1); Sodium 139 mmol/L (136-145)
[2020-06-30 13:09] LABS: Anion Gap 12.6 mEq/L (5-15); Blood Urea Nitrogen 22 mg/dl (9-20); Calcium 9.5 mg/dl (8.4-10.2); Carbon Dioxide 29 mmol/L (22.0-30.0); Estimated Glomerular Filt Rate 43 ml/min (>60); GFR (African American) 52 ML/MIN (>60); Glucose 344 mg/dl (74-100)
[2020-06-30 13:19] LABS: NT Pro Brain Natriuretic Pep. 115 pg/mL (0-125)
== END ==
PROVIDERS: Visit Provider Physician Assistant
DX: R06.02 Shortness of breath; R94.31 Abnormal electrocardiogram [ECG] [EKG]; R00.1 Bradycardia, unspecified; E11.9 Type 2 diabetes mellitus without complications; E78.5 Hyperlipidemia, unspecified; I11.9 Hypertensive heart disease without heart failure; I25.10 Atherosclerotic heart disease of native coronary artery without angina pectoris; I34.0 Nonrheumatic mitral (valve) insufficiency; I42.9 Cardiomyopathy, unspecified; I65.29 Occlusion and stenosis of unspecified carotid artery; K21.9 Gastro-esophageal reflux disease without esophagitis; N18.9 Chronic kidney disease, unspecified; Z79.84 Long term (current) use of oral hypoglycemic drugs
CPT/HCPCS: 36415; 80048; 83880

== ENCOUNTER → 2020-08-04 11:06 | Outpatient (CLI) | payer MEDICARE, SELFPAY ==
[2020-08-04 11:32] LABS: Basophils # 0.1 K/mm3 (0-0.2); Eosinophils # 0.3 K/mm3 (0.0-0.4); Eosinophils % 3.8 % (0.1-12.0); Hematocrit 49.3 % (42.0-52.0); Hemoglobin 16.3 g/dL (14.1-18.0); Lymphocytes # 2.3 K/mm3 (0.7-4.5); Lymphocytes % 25.2 % (10-50); Mean Corpuscular HGB Conc 33.2 g/dL (31.8-35.4); Mean Corpuscular Hemoglobin 31.3 pg (27.0-31.2); Mean Corpuscular Volume 94.5 fl (80-94); Mean Platelet Volume 8.9 fl (7.4-10.4); Monocytes # 0.5 K/mm3 (0.1-1.0); Monocytes % 5.6 % (1.7-9.3); Neutrophils # 5.8 K/mm3 (1.8-7.8); Neutrophils % 64.4 % (37.0-80.0); Platelet Count 230 K/mm3 (142-424); Red Blood Count 5.21 M/mm3 (4.60-6.20)
[2020-08-04 12:25] LABS: Chloride 99 mmol/L (98-107); Coronavirus 19 IgG Antibody Positive (Negative); Coronavirus 19 IgM Antibody Negative (Negative)
[2020-08-04 12:26] LABS: Potassium 4.7 mmoL/L (3.5-5.1); Sodium 137 mmol/L (136-145)
[2020-08-04 12:28] LABS: Blood Urea Nitrogen 25 mg/dl (9-20); Estimated Glomerular Filt Rate 43 ml/min (>60); GFR (African American) 52 ML/MIN (>60)
[2020-08-04 12:29] LABS: Anion Gap 11.7 mEq/L (5-15); Calcium 9.8 mg/dl (8.4-10.2); Carbon Dioxide 31 mmol/L (22.0-30.0); Glucose 385 mg/dl (74-100)
== END ==
PROVIDERS: Visit Provider Nurse Practitioner Family
DX: E11.69 Type 2 diabetes mellitus with other specified complication (principal); E66.9 Obesity, unspecified; E78.5 Hyperlipidemia, unspecified; I11.9 Hypertensive heart disease without heart failure; I25.10 Atherosclerotic heart disease of native coronary artery without angina pectoris; I34.0 Nonrheumatic mitral (valve) insufficiency; I42.9 Cardiomyopathy, unspecified; I65.29 Occlusion and stenosis of unspecified carotid artery; K21.9 Gastro-esophageal reflux disease without esophagitis; N18.9 Chronic kidney disease, unspecified; R00.1 Bradycardia, unspecified; R06.02 Shortness of breath; R42 Dizziness and giddiness; R94.31 Abnormal electrocardiogram [ECG] [EKG]; Z01.818 Encounter for other preprocedural examination
CPT/HCPCS: 36415; 80048; 85025; 86328

== ENCOUNTER 2020-08-05 06:56 | Day surgery (SDC) | payer MEDICARE, SELFPAY ==
[2020-08-05] VITALS (14 sets, daily range): BP systolic 94–141; BP diastolic 66–93; PULSE 55–68; RESP 18; TEMP 36.8; O2SAT 92–97; BMI 27.8
--- NOTE | 2020-08-05 07:11 | IR_ITS ---
APPROVED REPORT Patient Location: Outpatient Hot Worker: JASON Francisco RT (R) PROCEDURES Right heart catheterization Left heart catheterization Left ventriculogram Selective coronary angiogram INDICATION Known coronary artery disease, Accelerated angina pectoris, Suspected pulmonary hypertension, Worsening dyspnea Informed consent was obtained prior to the procedure. COMPLICATIONS none Estimated Blood Loss: less than 10 mls TECHNIQUE One percent lidocaine was used to anesthetize the right anterior aspect of the right wrist. The right radial artery was accessed via the Seldinger technique and a 6 Emirati hydrophilic sheath was placed in the right radial artery. Following this one percent lidocaine was used to anesthetize the right anterior aspect of the right neck. The right internal jugular vein was accessed via the Seldinger technique and a 7 Emir[place] sheath was placed in the right internal jugular vein. Following this an arterial cocktail was administered using 5000U heparin, 2.5 mg verapamil, 1mg Lidocaine and 800mcg nitroglycerin into the right radial sheath. A trap catheter was used to perform left heart catheterization left ventriculogram and selective coronary angiography while a [place] catheter was used to perform right heart catheterization. Saturations were obtained in the pulmonary artery and right atrium. At the end of the procedure the arterial sheath was removed good hemostasis was achieved using Traclet band. Patient was transferred to the postop holding area in stable condition for venous sheath removal. ANGIOGRAPHIC RESULTS The left main artery Normal The left anterior descending artery Has a stent in the proximal through mid segment which is widely patent free of in-stent restenosis with excellent proximal and distal transitioning. The mid vessel has a 30% nonflow-limiting stenosis. IRENE II flow is present down the entire LAD The circumflex artery Is a nondominant vessel with mild luminal irregularities The right coronary artery Is a large dominant vessel with proximal 30% stenosis mid vessel concentric 30 to 40% stenosis with distal mild luminal irregularities. IRENE II flow was present down the right coronary The LOGAN ventriculogram reveals Normal 65% The left ventricular end-diastolic pressure 5 mmHg Right atrial pressure 4 mmHg Pulmonary artery pressure 18/8 mmHg Pulmonary artery occlusion pressure 4 mmHg Right atrial saturation 73% Pulmonary artery saturation 73% IMPRESSION Patent LAD stent as described above Diffuse slow flow down the coronary arteries consistent with moderate to severe endothelial dysfunction which almost certainly accounts for patient's associated symptoms Normal ejection fraction Normal to low intracardial pulmonary filling pressures No evidence of cardiopulmonary shunt PLAN 1. Treatment of underlying endothelial dysfunction 2. Ongoing medical management for coronary artery disease 3. Maximize antianginals 4. Consider adding nitrates and Ranexa for endothelial dysfunction 5. Avoidance of tobacco products 6. Cardiac rehabilitation 7. Evaluate pulmonary etiologies for dyspnea Electronically signed by : Dinh Fleming, 08/05/2020 10:30:42
[2020-08-05 11:11] LABS: CATHL Arterial O2 SAT 74 % (90-100); CATHL Venous O2 SAT 74 % (75-80)
== END 2020-08-05 13:47 ==
LOC: CATHLAB 06:58
PROVIDERS: PCP Family Medicine; Visit Provider Internal Medicine
DX: I50.813 Acute on chronic right heart failure (principal); I50.22 Chronic systolic (congestive) heart failure; I34.0 Nonrheumatic mitral (valve) insufficiency; I42.9 Cardiomyopathy, unspecified; I65.29 Occlusion and stenosis of unspecified carotid artery; N18.9 Chronic kidney disease, unspecified; E66.9 Obesity, unspecified; I13.0 Hypertensive heart and chronic kidney disease with heart failure and stage 1 through stage 4 chronic kidney disease, or unspecified chronic kidney disease; E11.22 Type 2 diabetes mellitus with diabetic chronic kidney disease; I25.118 Atherosclerotic heart disease of native coronary artery with other forms of angina pectoris; Z79.01 Long term (current) use of anticoagulants; K21.9 Gastro-esophageal reflux disease without esophagitis; Z79.02 Long term (current) use of antithrombotics/antiplatelets; R94.31 Abnormal electrocardiogram [ECG] [EKG]; Z95.5 Presence of coronary angioplasty implant and graft; E78.5 Hyperlipidemia, unspecified; Z79.51 Long term (current) use of inhaled steroids; I65.23 Occlusion and stenosis of bilateral carotid arteries
CPT/HCPCS: 82810; 93460; 99152; C1725; C1769; C1894; J1644; Q9967

== ENCOUNTER 2021-04-28 10:21 | Emergency (ER) | payer MEDICARE, SELFPAY ==
[2021-04-28 10:21] VITALS: BP 0/0
--- NOTE | 2021-04-28 10:22 | PC.NURSE ---
squad reports giving 6 epis 1 sodium bicarb enroute. pt admits cpr inprogress with jorje. pt intubated with 7et tube, BS NOTED RYDER.
--- NOTE | 2021-04-28 10:22 | PC.NURSE ---
squad reports pt found down in bathroom by neighbor. pt was asystole on arrival.
--- NOTE | 2021-04-28 10:31 | PC.NURSE ---
pulse check, pt asystole, no pulse cpr resumed
--- NOTE | 2021-04-28 10:33 | PC.NURSE ---
pulse check pt asystole, no pulse, cpr resumed
--- NOTE | 2021-04-28 10:34 | PC.NURSE ---
pt's son at bedside. asked to stop cpr. code called by dr nolasco. tod [id number]. ultrasound showing no cardiac activity.
[2021-04-28 10:38] VITALS: BMI 31.1
--- NOTE | 2021-04-28 10:55 | PC.NURSE ---
MARITA CALLED PT RELEASED
--- NOTE | 2021-04-28 10:56 | HMH.EDGENADL ---
ED Disposition Clinical Impression: Cardiac arrest Disposition: Condition on Discharge: Critical - Critical Care Critical Care Time: Yes Attestation: On , the high probability of a clinically significant, sudden or life threatening deterioration of the following system(s) required my full and direct attention, intervention and personal management. The time I documented below is in addition to time spent performing reported procedures but includes the following listed in this critical care notation. Vital system(s) involved:: Circulatory Failure, Central Nervous System, Respiratory Failure My critical care processes included: Assessment & monitoring of V/S, Initial and Re-exams, Coordinating Care, Medication Orders and management, Documentation Probable Cause of : Cardiac arrest Medical Decision Making - Medical Records Medical records reviewed: Yes: I reviewed the patient's medical records. - Isai Inquiry Pt receiving controlled substance: No Orders (Tests/Meds): ED MEDICATIONS Generic Name Dose Route Start Last Admin Trade Name Freq PRN Reason Stop Dose Admin Epinephrine HCl 1 mg 04/28/21 10:46 Epinephrine 0.1 Mg/Ml 10ml Syringe (Crash Cart) IV 05/28/21 10:45 NEEDED PRN Code Blue Med Administration Discontinued Medications Generic Name Dose Route Start Last Admin Trade Name Freq PRN Reason Stop Dose Admin Calcium Chloride 1 gm/ Sodium 110 mls @ 55 mls/hr 04/28/21 10:47 Chloride IV 04/28/21 10:48 ONCE ONE Medical Decision Narrative: In summary this is a 66-year-old male with history of coronary artery disease presenting to the emergency department in full cardiac arrest. Patient taken to a critical resuscitation room and placed on the ZOLL monitor. End-tidal CO2 connected. Patient was 3 minutes since last epinephrine. 1 mg epi given in the left tibial IO. IO is functioning well, flushes easily. Patient given 2 g calcium chloride. At pulse check rhythm was asystole. Compressions resumed. Arrived to the emergency department 10:20 AM. Chest compressions with EMS had started at 9:35 AM. Downtime is now almost 1 hour. End-tidal CO2 between 0 and 5. Patient given additional epinephrine. Repeat pulse check shows no palpable pulses. Cardiac standstill on echo. Family at bedside, son, would like to cease resuscitation efforts. Time of called at 10:34 AM General Adult HPI - General Chief complaint: Cardiac Arrest/CPR Stated complaint: cardiac arrest Time Seen by Provider: 04/28/21 10:26 - History of Present Illness HPI narrative: 66-year-old male presenting to the emergency department in full cardiac arrest. EMS was called to the patient's home. A neighbor found him unresponsive in the bathroom. When EMS arrived he was pulseless and apneic. They began CPR. Patient was intubated endotracheally with a 7.0 ET tube. Confirmed with bilateral breath sounds and fogging the tube. Initial rhythm was asystole. Patient received 6 mg of epinephrine prior to arrival. He has a left tibial IO in place. Receiving compressions by Reece device. Fingerstick blood glucose was 200 mg/dL. Patient's son is the leading firefighter. He is here with patient. States he has a history of coronary artery disease and stents. Last known normal was last night before bed - Related Data Home Medications Medication Instructions Recorded Confirmed gabapentin 400 mg capsule 400 mg PO TID 09/24/17 04/19/21 atorvastatin 40 mg tablet 20 mg PO DAILY tab 06/18/18 04/19/21 tamsulosin 0.4 mg capsule 0.4 mg PO DAILY cap 09/09/19 04/19/21 Clopidogrel Bisulfate [Plavix 75mg 75 mg PO QDAY 02/26/20 04/19/21 Tab] multivitamin 1 tab PO DAILY 06/08/20 04/19/21 nitroglycerin 0.4 mg sublingual 0.4 mg SUBLINGUAL Q5M PRN 06/08/20 04/19/21 tablet furosemide 20 mg tablet 20 mg PO BID tab 08/03/20 04/19/21 insulin glargine U-300 conc 300 50 unit SQ DAILY 01/18/21 04/19/21 unit/mL (
--- NOTE | 2021-04-28 11:15 | PC.NURSE ---
JAVASCRIPT UI DEVELOPER CALLED
[2021-04-28 12:44] VITALS: BP 0/0; PULSE 0; RESP 0; TEMP -17.7; TEMP 0; O2SAT 0
== END 2021-04-28 12:44 | disposition expired ==
PROVIDERS: Emergency Provider Emergency Medicine
DX: I46.9 Cardiac arrest, cause unspecified (principal); I25.10 Atherosclerotic heart disease of native coronary artery without angina pectoris; F41.8 Other specified anxiety disorders; E78.5 Hyperlipidemia, unspecified; I10 Essential (primary) hypertension; N28.9 Disorder of kidney and ureter, unspecified
CPT/HCPCS: 31500; 96374; 99283